=== PATIENT | female | born 1960 | race Caucasian/White ===

== ENCOUNTER 2018-04-28 07:20 | Inpatient (IN) | payer MEDICARE, MEDICAID ==
[~2018-04-28] VITALS: Ht 157.5 cm; Wt 104.2 kg
[2018-04-28] VITALS (9 sets, daily range): BP systolic 93–133; BP diastolic 46–66
[2018-04-28] MEDS: ipratropium/albuterol 3ml nebule NEB SCH ×3 (03:00→23:45)
[~2018-04-28 07:20] MED LIST: ACAM333T8 PO; AMIT-106 PO; ARIP10TA15 PO; BUSP10TA3 PO; CYCL-1 PO; ERGO50002 PO; HYDR50TA65 PO; LAMO100T2 PO; MELO-102 PO; PRAZ1CAP5 PO; SIMV20TA5 PO; SYN0.088T PO; TRAZ-219 PO
[2018-04-28] MEDS ORDERED: methylPREDNISolone sod succ 125mg/2ml vial IV ONE (07:35)
[2018-04-28] MEDS ORDERED: magnesium 2GM in 50ml NS 50 ML IV ONE (07:35)
[2018-04-28] MEDS ORDERED: ipratropium/albuterol 3ml nebule NEB ONE (07:35)
[2018-04-28] MEDS ORDERED: LORazepam 2 mg/ml vial IV ONE ×2 (07:35→09:25)
[2018-04-28 08:16] LABS: BASOPHILS # (AUTO) 0.1 X10'3 (0-0.2); BASOPHILS % (AUTO) 0.4 % (0-1); EOSINOPHILS # (AUTO) 0.2 X10'3 (0-0.9); EOSINOPHILS % (AUTO) 1.5 % (0-6); HEMOGLOBIN 12.8 g/dl (12.0-16.0); LYMPHOCYTES # (AUTO) 0.8 X10'3 (1.1-4.8); LYMPHOCYTES % (AUTO) 4.5 % (21-51); MEAN CORPUSCULAR HEMOGLOBIN 35.9 PG (27.0-31.0); MEAN CORPUSCULAR HGB CONC 34.7 % (33.0-36.5); MEAN CORPUSCULAR VOLUME 103.5 FL (78-98); MEAN PLATELET VOLUME 7.7 FL (7.4-10.4); MONOCYTES # (AUTO) 0.6 X10'3 (0-0.9); MONOCYTES % (AUTO) 3.5 % (2-12); NEUTROPHILS # (AUTO) 15.3 X10'3 (1.8-7.7); NEUTROPHILS % (AUTO) 90.1 % (42-75); PLATELET COUNT 171 X10'3 (140-440); RED BLOOD COUNT 3.57 X10'6 (4.20-5.60); RED CELL DISTRIBUTION WIDTH 13.2 % (11.5-14.5); WHITE BLOOD COUNT 16.9 X10'3 (4.5-11.0)
[2018-04-28] MEDS ORDERED: furosemide 10 MG/1 ML 10ml inj IV ONE (08:20)
[2018-04-28 08:23] LABS: CLARITY,URINE SLIGHTLY CLOUDY (Clear); COLOR,URINE YELLOW (Yellow); GLUCOSE, URINE NEGATIVE (Neg); KETONES,URINE TRACE mg/dl (Neg); PROTEIN,URINE NEGATIVE (Neg); UA COLLECTION TYPE STRAIGHT CATH
[2018-04-28 08:23] LABS: INR 1.2 INR; PARTIAL THROMBOPLASTIN TIME 30 SECONDS (22-32); PROTHROMBIN TIME 12.5 SECONDS (9.0-12.0)
[2018-04-28 08:24] LABS: LEUKOCYTE ESTERASE ,URINE NEGATIVE (Neg); NITRITES, URINE NEGATIVE (Neg); OCCULT BLOOD,URINE NEGATIVE (Neg)
[2018-04-28] MEDS ORDERED: vancomycin/NS 1 GM ADD-VANTAGE 250 ML IV ONE (08:25)
[2018-04-28] MEDS ORDERED: levoFLOXACIN-Levaquin 750MG/D5 150 ML IV ONE (08:25)
[2018-04-28 08:26] LABS: ALANINE AMINOTRANSFERASE 100 U/L (12-78); ALBUMIN 2.8 G/DL (3.4-5.0); ALBUMIN/GLOBULIN RATIO 0.7 (1.1-1.5); ALKALINE PHOSPHATASE 252 IU/L (46-116); ANION GAP 11 (8-16); ASPARTATE AMINO TRANSFERASE 297 U/L (10-37); BLOOD UREA NITROGEN 13 MG/DL (7-18); BUN/CREATININE RATIO 11.6 (6.6-38.0); CHLORIDE 102 MMOL/L (99-107); CREATININE 1.12 MG/DL (0.40-0.90); SODIUM 138 MMOL/L (135-145); TOTAL CARBON DIOXIDE 24.7 MMOL/L (24-32); eGFR 50 ML/MIN
[2018-04-28 08:27] LABS: BACTERIA,URINE 1+ /HPF (Neg); COARSE GRANULAR CAST 0-3 /LPF (NEGATIVE); MUCUS STRANDS FEW /LPF (Neg); RBC,URINE NONE SEEN /HPF (0-2); SQUAMOUS EPITHELIAL CELL,UR MODERATE /LPF (FEW); WBC CASTS 0-3 /LPF (NEGATIVE); WBC CLUMPS,URINE FEW /HPF (NEGATIVE)
[2018-04-28 08:30] LABS: GLUCOSE 117 MG/DL (70-104)
[2018-04-28 08:36] LABS: TOTAL CELLS COUNTED 100
--- NOTE | 2018-04-28 08:38 | NUR ---
rt at bedside placing on bipap
[2018-04-28 08:41] LABS: PLATELET ESTIMATE NORMAL; POLYCHROMASIA 1+
[2018-04-28 08:42] LABS: TOXIC GRANULATION 1+
[2018-04-28] MEDS ORDERED: normal saline 1000ML IV soln IVB ONE (08:45)
[2018-04-28] MEDS ORDERED: 0.9 % SODIUM CHLORIDE 10 ML VIAL ONE (09:00)
[2018-04-28] MEDS ORDERED: rocuronium 10mg/ml inj IV ONE (09:00)
[2018-04-28] MEDS ORDERED: etomidate 2mg/ml inj. ONE (09:00)
--- NOTE | 2018-04-28 09:08 | NUR ---
RT AT BEDSIDE DRAWING ABG, DR. BURNETT WAITING FOR RESULTS TO DECIDE NEXT TREAMENT NEEDED.
[2018-04-28 09:20] LABS: ABG BASE EXCESS -4.4 mmol/L (-2.0-3.0); ABG HCO3 21.2 mmol/L (22.0-26.0); ABG OXYGEN SATURATION 97.6 % (95-98); ABG PCO2 (T) 41.3 mmHg (32.0-45.0); ABG PH (T) 7.329 (7.350-7.450); ABG PO2 (T) 103.6 mmHg (83-108); ALLEN'S TEST Positive; FCOHb 1.1 % (0.5-1.5); FMetHb 0.3 % (0.3-1.12); FO2Hb 96.2 % (94-100); MINUTE VOLUME 30 L/min; RESPIRATORY RATE (OBSERVED) 32 b/min; TOTAL HEMOGLOBIN 13.8 G/dl (12.0-16.0)
--- NOTE | 2018-04-28 09:21 | NUR ---
DR MARTINEZFS AT BEDSIDE PREPARING TO INTUBATE, RT AT BEDSIDE. 0924 JASIEL 100, ETOMIDATE 20
--- NOTE | 2018-04-28 09:25 | NUR ---
0925 ETOMIDATE 20 ADMIN 0926 JASIEL [address] BURNETT INTUBATED WITH SIZE 8 TUBE, POSITIVE COLOR CHANGE, CO2 MONITOR, 20 AT LIP. BREATH SOUNDS BILATERALLY. HR 113, SPO2 03% ETCO2 27 0928 SET UP FOR QUAD LUMEN CENTRAL LINE WHILE SETTING UP VENT SETTINGS. BP 94/61 0932 BP 138/71 114 95% 100% 0938 152/81 120 91 100% DR BURNETT PLACING CENTRAL LINE. 0940 ULTRASOUND BROUGHT TO ROOM 0950 BP 195/98 122 91 100% DR BURNETT USING ULTRASOUND FOR CENTRAL LINE PLACEMENT. 0958 BP 193/95 124 92% 100% 1000 STARTING PREPING FEMORAL AREA FOR CENTRAL LINE PLACEMENT. Addendum: 04/28/18 at 1000 by VERONICA NOTE BY AUBREY
[2018-04-28] MEDS ORDERED: fentaNYL/PF 50MCG/1 ML 2ML syringe IV ONE (10:05)
--- NOTE | 2018-04-28 10:05 | NUR ---
1005 DR BURNETT PLACED FEMORAL LINE. BP 193/95 127 91 100% FIO2 1015 CXR AT BEDSIDE
[2018-04-28] MEDS ORDERED: potassium Cl 40MEQ/250ML bag 250 ML IV PRN (11:05)
[2018-04-28] MEDS ORDERED: ondansetron/PF 4mg/2ml inj IV PRN (11:05)
[2018-04-28] MEDS ORDERED: potassium Cl 20 mEq SR tablet PO PRN ×2 (11:05)
[2018-04-28] MEDS ORDERED: midazolam 2 mg/2 ml injection IV ONE (11:05)
[2018-04-28] MEDS ORDERED: acetaminophen 325mg tablet PO PRN (11:05)
[2018-04-28] MEDS ORDERED: potassium Cl 40MEQ/NS 500ml 500 ML IV PRN ×2 (11:05)
[2018-04-28] MEDS ORDERED: ipratropium/albuterol 3ml nebule NEB PRN (11:05)
[2018-04-28] MEDS ORDERED: fentaNYL/PF 50MCG/1 ML 2ML syringe IV PRN (11:05)
[2018-04-28] MEDS ORDERED: potassium Cl 40MEQ/250ML bag 250 ML IV SCH (11:05)
--- NOTE | 2018-04-28 11:12 | NUR ---
GASTRIC TUBE PLACED. POSITIVE PLACEMENT VARIFIED
[2018-04-28] MEDS: normal saline 1000ml 1,000 ML IV SCH (11:13)
[2018-04-28] MEDS: propofol 1000mg/100ml bottle 100 ML IV PRN (11:34)
[2018-04-28] MEDS: potassium 10mEq/100ml NS w/LIDOcaine (10mg/bag) IV SCH ×4 (11:35→13:12)
--- NOTE | 2018-04-28 11:38 | NUR ---
RT paged for oxygen sats of 87%. aware. Fio2 at 100% on vent
--- NOTE | 2018-04-28 12:52 | NUR ---
Pts dad came brifley. He looked at the patient and said 'well, if she is asleap I'm just going to go'. It was explained to him that she is intubated. His questions were answered and he states that he will call to check on her.
[2018-04-28] MEDS: CefTRIAXone/D5W-Rocephin 1gm 50 ML IV SCH (13:12)
--- NOTE | 2018-04-28 13:40 | NUR ---
pt arrived from er report received assumed care. pt moved to bed and placed on vent
[2018-04-28 14:51] LABS: OXYGEN SATURATION (MIXED VEN) 58.3 % (60-80); PO2 MIXED VENOUS (TEMP COR) 34.8 mmHg (35-46)
[2018-04-28] MEDS: azithromycin/NS 500mg/250ml 250 ML IV SCH (15:04)
[2018-04-28] MEDS: FENTANYL-0.9 % NACL/PF 100 ML IV PRN ×2 (15:26→19:34)
[2018-04-28] MEDS: midazolam 100mg in NS 100ml 100 ML IV PRN ×2 (15:28→19:26)
--- NOTE | 2018-04-28 16:45 | NUR ---
TF consult: Pt in ICU and intubated. Already with an OG tube per RN. Recommend continuous TF of Vital high protein with goal rate of 60 mL/hr to provide total volume of 1440 mL/day, 1440 kcal, 126 g protein, and 1204 mL fluid with 200 mL water flush Q 4 hours to meet 100% of patient's estimated nutrient needs. Will continue to follow and monitor tolerance to TF. Recommendations: 1) Continuous TF of Vital high protein to begin at 20 mL/hr and advance by 20 mL q 8 hours to goal rate of 60 mL/hr 2) 200 mL water flush q 4 hours 3) Prealbumin q / 4) Daily wt 5) BSS following extubation with diet advancement to heart healthy as medically indicated Addendum: 04/28/18 at [address] Amended: Links added.
[2018-04-28] MEDS: docusate sod 100mg capsule PO SCH (20:00)
[2018-04-28] MEDS: heparin, porcine 5000 units/ml vial SQ SCH (20:42)
[2018-04-28] MEDS: famotidine/PF 10 mg/ml inj IV SCH (20:54)
[2018-04-28] MEDS: mineral oil/petrolatum ophthal oint EACHEYE SCH (20:54)
[2018-04-29] VITALS (24 sets, daily range): BP systolic 91–114; BP diastolic 44–62
[2018-04-29] MEDS: FENTANYL-0.9 % NACL/PF 100 ML IV PRN ×4 (01:13→20:49)
[2018-04-29] MEDS: normal saline 1000ml 1,000 ML IV SCH (02:16)
[2018-04-29] MEDS: midazolam 100mg in NS 100ml 100 ML IV PRN ×2 (02:17→07:19)
[2018-04-29 02:53] LABS: BASOPHILS % (AUTO) 0 % (0-1); EOSINOPHILS % (AUTO) 0 % (0-6); HEMATOCRIT 32.2 % (35.0-45.0); HEMOGLOBIN 10.9 g/dl (12.0-16.0); LYMPHOCYTES # (AUTO) 0.7 X10'3 (1.1-4.8); LYMPHOCYTES % (AUTO) 4.1 % (21-51); MEAN CORPUSCULAR HEMOGLOBIN 35.1 PG (27.0-31.0); MEAN CORPUSCULAR HGB CONC 33.7 % (33.0-36.5); MEAN CORPUSCULAR VOLUME 104.2 FL (78-98); MONOCYTES # (AUTO) 0.8 X10'3 (0-0.9); MONOCYTES % (AUTO) 4.7 % (2-12); NEUTROPHILS # (AUTO) 15.2 X10'3 (1.8-7.7); NEUTROPHILS % (AUTO) 91.2 % (42-75); PLATELET COUNT 190 X10'3 (140-440); RED BLOOD COUNT 3.09 X10'6 (4.20-5.60); RED CELL DISTRIBUTION WIDTH 13.4 % (11.5-14.5); WHITE BLOOD COUNT 16.7 X10'3 (4.5-11.0)
[2018-04-29 03:11] LABS: ALANINE AMINOTRANSFERASE 81 U/L (12-78); ALBUMIN 2.4 G/DL (3.4-5.0); ALBUMIN/GLOBULIN RATIO 0.6 (1.1-1.5); ALKALINE PHOSPHATASE 218 IU/L (46-116); ANION GAP 12 (8-16); ASPARTATE AMINO TRANSFERASE 173 U/L (10-37); BLOOD UREA NITROGEN 15 MG/DL (7-18); BUN/CREATININE RATIO 22.1 (6.6-38.0); CALCIUM 8.4 MG/DL (8.5-10.1); CHLORIDE 105 MMOL/L (99-107); CREATININE 0.68 MG/DL (0.40-0.90); GLUCOSE 142 MG/DL (70-104); MAGNESIUM 2.2 MG/DL (1.5-2.4); PHOSPHORUS 4.2 MG/DL (2.3-4.5); SODIUM 140 MMOL/L (135-145); TOTAL CARBON DIOXIDE 22.9 MMOL/L (24-32); TOTAL PROTEIN 6.4 G/DL (6.4-8.2); eGFR 89 ML/MIN
[2018-04-29 03:30] LABS: ABG BASE EXCESS -4.7 mmol/L (-2.0-3.0); ABG HCO3 22.2 mmol/L (22.0-26.0); ABG OXYGEN SATURATION 85.8 % (95-98); ABG PCO2 (T) 47.2 mmHg (32.0-45.0); ABG PH (T) 7.288 (7.350-7.450); ABG PO2 (T) 50.6 mmHg (83-108); FMetHb 0.1 % (0.3-1.12); FO2Hb 85.7 % (94-100); MINUTE VOLUME 10 L/min; PATIENT TEMPERATURE 36.5; PEEP 10 cm H2O; RESPIRATORY RATE 20 b/min; RESPIRATORY RATE (OBSERVED) 22 b/min; TIDAL VOLUME 400 mL; TOTAL HEMOGLOBIN 13.5 G/dl (12.0-16.0)
--- NOTE | 2018-04-29 06:45 | NUR ---
Patient in room ICU 2037. I have received report from JENAE Dacosta and had the opportunity to ask questions and assume patient care.
[2018-04-29] MEDS: ipratropium/albuterol 3ml nebule NEB SCH ×6 (07:00→23:07)
[2018-04-29] MEDS: azithromycin/NS 500mg/250ml 250 ML IV SCH (07:49)
[2018-04-29] MEDS: heparin, porcine 5000 units/ml vial SQ SCH ×2 (07:50→21:18)
[2018-04-29] MEDS: CefTRIAXone/D5W-Rocephin 1gm 50 ML IV SCH (07:50)
[2018-04-29] MEDS: famotidine/PF 10 mg/ml inj IV SCH ×2 (07:50→21:17)
[2018-04-29] MEDS: docusate sod 100mg capsule PO SCH ×2 (08:00→20:00)
[2018-04-29] MEDS ORDERED: vancomycin/NS 1 GM ADD-VANTAGE 250 ML X 1 DOSE IV ONE (08:55)
[2018-04-29] MEDS ORDERED: furosemide 40mg/4ml inj IV SCH (09:00)
[2018-04-29] MEDS: propofol 1000mg/100ml bottle 100 ML IV PRN (10:34)
[2018-04-29] MEDS: hydrOXYzine 25 MG tablet PO SCH ×3 (13:20→21:02)
[2018-04-29] MEDS: furosemide 40mg/4ml inj IV SCH ×2 (13:20→21:07)
[2018-04-29] MEDS: acamprosate DR 333mg Tablet PO SCH (16:00)
--- NOTE | 2018-04-29 18:31 | NUR ---
Problems reprioritized. Patient report given, questions answered & plan of care reviewed with JENAE Dacosta.
--- NOTE | 2018-04-29 19:00 | NUR ---
Patient in room ICU 2037. I have received report from Aura Sanderson RN and had the opportunity to ask questions and assume patient care.
[2018-04-29] MEDS: mineral oil/petrolatum ophthal oint EACHEYE SCH (20:00)
[2018-04-29] MEDS: prazosin 1mg capsule PO SCH (21:00)
[2018-04-29] MEDS: atorvastatin 10mg tablet PO SCH (21:03)
[2018-04-29] MEDS: busPIRone 5mg tablet PO SCH (21:03)
[2018-04-29] MEDS: lamoTRIgine 100mg tablet PO SCH (21:03)
[2018-04-29] MEDS ORDERED: CISatracurium besylate inj. 200 MG in dextrose 5%-water 180 ML IV PRN (21:30)
[2018-04-29] MEDS: traZODone 50mg tablet PO SCH (21:39)
[2018-04-29 21:56] LABS: ABG BASE EXCESS -1.6 mmol/L (-2.0-3.0); ABG HCO3 25.4 mmol/L (22.0-26.0); ABG OXYGEN SATURATION 91.9 % (95-98); ABG PCO2 (T) 54.7 mmHg (32.0-45.0); ABG PH (T) 7.287 (7.350-7.450); ABG PO2 (T) 66.1 mmHg (83-108); FCOHb 0.3 % (0.5-1.5); FMetHb 0.1 % (0.3-1.12); FO2Hb 91.5 % (94-100); MINUTE VOLUME 9 L/min; PATIENT TEMPERATURE 37.5; PEEP 14 cm H2O; RESPIRATORY RATE 18 b/min; RESPIRATORY RATE (OBSERVED) 18 b/min; TIDAL VOLUME 400 mL; TOTAL HEMOGLOBIN 11.3 G/dl (12.0-16.0)
[2018-04-30] VITALS (23 sets, daily range): BP systolic 80–118; BP diastolic 39–58
[2018-04-30] MEDS: mineral oil/petrolatum ophthal oint EACHEYE SCH ×4 (02:00→20:53)
[2018-04-30] MEDS: ipratropium/albuterol 3ml nebule NEB SCH ×6 (02:34→23:38)
[2018-04-30 02:45] LABS: ABG HCO3 26.5 mmol/L (22.0-26.0); ABG OXYGEN SATURATION 99.4 % (95-98); ABG PH (T) 7.319 (7.350-7.450); ABG PO2 (T) 284.3 mmHg (83-108); FCOHb 0.3 % (0.5-1.5); FMetHb 0.3 % (0.3-1.12); FO2Hb 98.8 % (94-100); MINUTE VOLUME 9 L/min; PATIENT TEMPERATURE 37.4; PEEP 16 cm H2O; RESPIRATORY RATE 20 b/min; RESPIRATORY RATE (OBSERVED) 20 b/min; TIDAL VOLUME 400 mL
[2018-04-30 03:09] LABS: BASOPHILS % (AUTO) 0.1 % (0-1); EOSINOPHILS # (AUTO) 0.3 X10'3 (0-0.9); EOSINOPHILS % (AUTO) 1.9 % (0-6); HEMATOCRIT 30.2 % (35.0-45.0); LYMPHOCYTES # (AUTO) 1.5 X10'3 (1.1-4.8); LYMPHOCYTES % (AUTO) 10.5 % (21-51); MEAN CORPUSCULAR HGB CONC 33.3 % (33.0-36.5); MEAN CORPUSCULAR VOLUME 105.2 FL (78-98); MEAN PLATELET VOLUME 7.3 FL (7.4-10.4); MONOCYTES % (AUTO) 6.9 % (2-12); NEUTROPHILS # (AUTO) 11.8 X10'3 (1.8-7.7); NEUTROPHILS % (AUTO) 80.6 % (42-75); PLATELET COUNT 198 X10'3 (140-440); RED BLOOD COUNT 2.87 X10'6 (4.20-5.60); RED CELL DISTRIBUTION WIDTH 13.9 % (11.5-14.5); WHITE BLOOD COUNT 14.7 X10'3 (4.5-11.0)
[2018-04-30 03:25] LABS: ALANINE AMINOTRANSFERASE 62 U/L (12-78); ALBUMIN 2.3 G/DL (3.4-5.0); ALBUMIN/GLOBULIN RATIO 0.6 (1.1-1.5); ALKALINE PHOSPHATASE 204 IU/L (46-116); ANION GAP 10 (8-16); ASPARTATE AMINO TRANSFERASE 101 U/L (10-37); BILIRUBIN,TOTAL 0.8 MG/DL (0.1-1.0); BLOOD UREA NITROGEN 23 MG/DL (7-18); BUN/CREATININE RATIO 27.7 (6.6-38.0); CHLORIDE 106 MMOL/L (99-107); CREATININE 0.83 MG/DL (0.40-0.90); GLUCOSE 139 MG/DL (70-104); PHOSPHORUS 2.9 MG/DL (2.3-4.5); POTASSIUM 3.5 MMOL/L (3.5-5.1); SODIUM 142 MMOL/L (135-145); TOTAL CARBON DIOXIDE 26.3 MMOL/L (24-32); TOTAL PROTEIN 6.4 G/DL (6.4-8.2); eGFR 70 ML/MIN
[2018-04-30] MEDS: propofol 1000mg/100ml bottle 100 ML IV PRN (04:34)
[2018-04-30] MEDS: FENTANYL-0.9 % NACL/PF 100 ML IV PRN ×4 (05:07→22:41)
[2018-04-30] MEDS ORDERED: potassium Cl 40MEQ/250ML bag 250 ML IV ONE (07:20)
[2018-04-30] MEDS: docusate sod 100mg capsule PO SCH ×2 (08:00→20:00)
[2018-04-30] MEDS: acamprosate DR 333mg Tablet PO SCH ×3 (08:00→16:00)
[2018-04-30] MEDS: lamoTRIgine 100mg tablet PO SCH ×2 (08:11→20:27)
[2018-04-30] MEDS: amitriptyline 25mg tablet PO SCH (08:12)
[2018-04-30] MEDS: aripiprazole 5mg tablet PO SCH (08:12)
[2018-04-30] MEDS: cyclobenzaprine 10mg tablet PO SCH (08:13)
[2018-04-30] MEDS: busPIRone 5mg tablet PO SCH ×2 (08:13→20:27)
[2018-04-30] MEDS: furosemide 40mg/4ml inj IV SCH ×3 (08:13→20:28)
[2018-04-30] MEDS: levoTHYROXINE 88mcg tablet PO SCH (08:13)
[2018-04-30] MEDS: famotidine/PF 10 mg/ml inj IV SCH ×2 (08:13→20:26)
[2018-04-30] MEDS: heparin, porcine 5000 units/ml vial SQ SCH ×2 (08:14→20:30)
[2018-04-30] MEDS: CefTRIAXone/D5W-Rocephin 1gm 50 ML IV SCH (09:48)
[2018-04-30] MEDS: hydrOXYzine 25 MG tablet PO SCH ×4 (09:56→20:53)
[2018-04-30] MEDS: azithromycin/NS 500mg/250ml 250 ML IV SCH (11:46)
[2018-04-30] MEDS ORDERED: VANCOMYCIN LEVEL IV NR (14:30)
[2018-04-30] MEDS: folic acid inj. 2 MG, thiamine inj. 100 MG, MVI, adult No.4 with vit. K 10 ML in dextro... IV SCH ×4 (15:21)
--- NOTE | 2018-04-30 18:25 | NUR ---
Patient in room ICU 2037. I have received report from Paula EMANUEL and had the opportunity to ask questions and assume patient care. Patient laying in bed, intubated and sedated. Patient on 40% FIO2, saturating at 93% and breathing at 18 breaths/min. BP at 96/47 per automatic cuff, diprivan off at this time for low BP. Will continue to monitor patient.
[2018-04-30] MEDS: midazolam 100mg in NS 100ml 100 ML IV PRN (19:23)
[2018-04-30] MEDS: atorvastatin 10mg tablet PO SCH (20:26)
[2018-04-30] MEDS: prazosin 1mg capsule PO SCH (20:27)
[2018-04-30] MEDS: traZODone 50mg tablet PO SCH (20:27)
[2018-05-01] VITALS (24 sets, daily range): BP systolic 84–117; BP diastolic 42–57
[2018-05-01] MEDS: mineral oil/petrolatum ophthal oint EACHEYE SCH ×4 (02:29→19:56)
[2018-05-01] MEDS: ipratropium/albuterol 3ml nebule NEB SCH ×6 (02:52→23:11)
[2018-05-01 02:55] LABS: BASOPHILS % (AUTO) 0.2 % (0-1); EOSINOPHILS # (AUTO) 0.4 X10'3 (0-0.9); EOSINOPHILS % (AUTO) 4.3 % (0-6); HEMATOCRIT 27.8 % (35.0-45.0); HEMOGLOBIN 9.3 g/dl (12.0-16.0); LYMPHOCYTES # (AUTO) 1.4 X10'3 (1.1-4.8); LYMPHOCYTES % (AUTO) 13.5 % (21-51); MEAN CORPUSCULAR HEMOGLOBIN 34.8 PG (27.0-31.0); MEAN CORPUSCULAR HGB CONC 33.3 % (33.0-36.5); MEAN CORPUSCULAR VOLUME 104.8 FL (78-98); MEAN PLATELET VOLUME 7.5 FL (7.4-10.4); MONOCYTES # (AUTO) 0.8 X10'3 (0-0.9); MONOCYTES % (AUTO) 7.8 % (2-12); NEUTROPHILS # (AUTO) 7.6 X10'3 (1.8-7.7); NEUTROPHILS % (AUTO) 74.2 % (42-75); PLATELET COUNT 170 X10'3 (140-440); RED BLOOD COUNT 2.65 X10'6 (4.20-5.60); RED CELL DISTRIBUTION WIDTH 13.9 % (11.5-14.5); WHITE BLOOD COUNT 10.3 X10'3 (4.5-11.0)
[2018-05-01 03:06] LABS: ALANINE AMINOTRANSFERASE 54 U/L (12-78); ALBUMIN 2.2 G/DL (3.4-5.0); ALBUMIN/GLOBULIN RATIO 0.6 (1.1-1.5); ALKALINE PHOSPHATASE 187 IU/L (46-116); ANION GAP 7 (8-16); ASPARTATE AMINO TRANSFERASE 86 U/L (10-37); BILIRUBIN,TOTAL 0.8 MG/DL (0.1-1.0); BLOOD UREA NITROGEN 24 MG/DL (7-18); BUN/CREATININE RATIO 31.2 (6.6-38.0); CALCIUM 8.1 MG/DL (8.5-10.1); CHLORIDE 107 MMOL/L (99-107); CREATININE 0.77 MG/DL (0.40-0.90); GLUCOSE 130 MG/DL (70-104); MAGNESIUM 1.9 MG/DL (1.5-2.4); PHOSPHORUS 2.4 MG/DL (2.3-4.5); POTASSIUM 3.5 MMOL/L (3.5-5.1); SODIUM 143 MMOL/L (135-145); TOTAL CARBON DIOXIDE 28.6 MMOL/L (24-32); TOTAL PROTEIN 6.1 G/DL (6.4-8.2); eGFR 77 ML/MIN
[2018-05-01 03:06] LABS: ABG BASE EXCESS 0.5 mmol/L (-2.0-3.0); ABG HCO3 27.4 mmol/L (22.0-26.0); ABG OXYGEN SATURATION 96.9 % (95-98); ABG PCO2 (T) 55.1 mmHg (32.0-45.0); ABG PH (T) 7.313 (7.350-7.450); ABG PO2 (T) 91.6 mmHg (83-108); FCOHb 0.3 % (0.5-1.5); FMetHb 0.2 % (0.3-1.12); FO2Hb 96.4 % (94-100); PATIENT TEMPERATURE 36.7; PEEP 14 cm H2O; RESPIRATORY RATE 18 b/min; RESPIRATORY RATE (OBSERVED) 18 b/min; TIDAL VOLUME 400 mL; TOTAL HEMOGLOBIN 10.3 G/dl (12.0-16.0)
--- NOTE | 2018-05-01 06:19 | NUR ---
Problems reprioritized. Patient report given, questions answered & plan of care reviewed with Paula EMANUEL.
[2018-05-01] MEDS: acamprosate DR 333mg Tablet PO SCH ×2 (06:21)
[2018-05-01] MEDS: busPIRone 5mg tablet PO SCH ×2 (07:25→19:57)
[2018-05-01] MEDS: aripiprazole 5mg tablet PO SCH (07:25)
[2018-05-01] MEDS: docusate sodium 100mg/10ml UD cup PO SCH ×2 (07:25→19:56)
[2018-05-01] MEDS: amitriptyline 25mg tablet PO SCH (07:25)
[2018-05-01] MEDS: levoTHYROXINE 88mcg tablet PO SCH (07:25)
[2018-05-01] MEDS: lamoTRIgine 100mg tablet PO SCH ×2 (07:26→19:57)
[2018-05-01] MEDS: cyclobenzaprine 10mg tablet PO SCH (07:26)
[2018-05-01] MEDS: furosemide 40mg/4ml inj IV SCH ×2 (07:26→19:56)
[2018-05-01] MEDS: CefTRIAXone/D5W-Rocephin 1gm 50 ML IV SCH (07:27)
[2018-05-01] MEDS: hydrOXYzine 25 MG tablet PO SCH ×4 (07:27→20:00)
[2018-05-01] MEDS: famotidine/PF 10 mg/ml inj IV SCH ×2 (07:27→19:56)
[2018-05-01] MEDS: heparin, porcine 5000 units/ml vial SQ SCH ×2 (07:27→19:58)
[2018-05-01] MEDS: azithromycin/NS 500mg/250ml 250 ML IV SCH (08:22)
[2018-05-01] MEDS: folic acid inj. 2 MG, thiamine inj. 100 MG, MVI, adult No.4 with vit. K 10 ML in dextro... IV SCH ×4 (09:48)
--- NOTE | 2018-05-01 13:28 | NUR ---
reassessment: Pt TF held last night for residuals >200; restarted at 20ml/hr today. Man 10 w/ skin intact. Receiving banana bag for etoh hx. LBM 04/28 on relistor. Will monitor for TF tolerance and additional bowel care needs. Recommendations: 1) Continuous TF of Vital high protein to begin at 20 mL/hr and advance by 20 mL q 8 hours to goal rate of 60 mL/hr 2) 200 mL water flush q 4 hours 3) Prealbumin q / 4) Daily wt 5) Routine bowel care 6) BSS following extubation with diet advancement to heart healthy as medically indicated Addendum: 05/01/18 at [address] Amended: Links added.
[2018-05-01] MEDS: methylPREDNISolone sod succ 125mg/2ml vial IV SCH ×2 (14:46→19:56)
[2018-05-01] MEDS: methylnaltrexone br 12mg/0.6ml inj***SubQ only SQ SCH (16:00)
[2018-05-01] MEDS: midazolam 100mg in NS 100ml 100 ML IV PRN (18:06)
--- NOTE | 2018-05-01 18:30 | NUR ---
Patient in room ICU 2037. I have received report from Cathy EMANUEL and had the opportunity to ask questions and assume patient care. Patient laying in bed, intubated and sedated on 5ml versed/hr and 5ml fentanyl/hr. BP at 113/57 via arterial line, Patient saturating at 90% on 40% FIO2 on AC/CV mode, breathing at 22 breaths/min. Will continue to monitor patient.
[2018-05-01] MEDS: lactobacillus rhamnosus 10,000 MMU CELLS/CAPSULE PO SCH (19:57)
[2018-05-01] MEDS: traZODone 50mg tablet PO SCH (20:01)
[2018-05-01] MEDS: atorvastatin 10mg tablet PO SCH (20:52)
[2018-05-01] MEDS: prazosin 1mg capsule PO SCH (20:53)
[2018-05-02] VITALS (24 sets, daily range): BP systolic 10–124; BP diastolic 39–60
--- NOTE | 2018-05-02 | NUR ---
No changes in patient condition. Patient remains intubated and sedated, vitals WNL. Will continue to monitor patient.
[2018-05-02] MEDS: mineral oil/petrolatum ophthal oint EACHEYE SCH ×4 (02:00→19:42)
[2018-05-02] MEDS ORDERED: dextrose ORAL solution 15 GM/59 ML bottle PO PRN ×2 (02:20)
[2018-05-02] MEDS ORDERED: glucagon, human recombinant 1mg kit SUBCUT PRN (02:20)
[2018-05-02] MEDS ORDERED: dextrose 50%-water 50ml dispensing syringe IV PRN ×2 (02:20)
[2018-05-02] MEDS ORDERED: insulin Lispro (HumaLOG) vial - multi-dose SQ SCH (02:20)
[2018-05-02 03:26] LABS: BASOPHILS % (AUTO) 0.1 % (0-1); EOSINOPHILS % (AUTO) 0.3 % (0-6); HEMATOCRIT 28.5 % (35.0-45.0); HEMOGLOBIN 9.6 g/dl (12.0-16.0); LYMPHOCYTES # (AUTO) 0.8 X10'3 (1.1-4.8); LYMPHOCYTES % (AUTO) 9.5 % (21-51); MEAN CORPUSCULAR HEMOGLOBIN 35.1 PG (27.0-31.0); MEAN CORPUSCULAR HGB CONC 33.7 % (33.0-36.5); MEAN CORPUSCULAR VOLUME 104.3 FL (78-98); MEAN PLATELET VOLUME 7.9 FL (7.4-10.4); MONOCYTES # (AUTO) 0.2 X10'3 (0-0.9); MONOCYTES % (AUTO) 2.8 % (2-12); NEUTROPHILS % (AUTO) 87.3 % (42-75); PLATELET COUNT 174 X10'3 (140-440); RED BLOOD COUNT 2.73 X10'6 (4.20-5.60); RED CELL DISTRIBUTION WIDTH 13.3 % (11.5-14.5)
[2018-05-02] MEDS: methylPREDNISolone sod succ 125mg/2ml vial IV SCH ×4 (03:28→19:42)
[2018-05-02] MEDS: ipratropium/albuterol 3ml nebule NEB SCH ×6 (03:33→23:08)
[2018-05-02] MEDS: insulin regular, human vial - multi-dose SQ SCH ×4 (03:33→20:04)
[2018-05-02 03:50] LABS: ABG HCO3 30.6 mmol/L (22.0-26.0); ABG OXYGEN SATURATION 97.8 % (95-98); ABG PCO2 (T) 51.1 mmHg (32.0-45.0); ABG PH (T) 7.397 (7.350-7.450); ABG PO2 (T) 110.5 mmHg (83-108); FCOHb 0.3 % (0.5-1.5); FO2Hb 97.5 % (94-100); MINUTE VOLUME 9 L/min; PATIENT TEMPERATURE 37.6; PEEP 14 cm H2O; RESPIRATORY RATE 22 b/min; RESPIRATORY RATE (OBSERVED) 22 b/min; TIDAL VOLUME 400 mL; TOTAL HEMOGLOBIN 10.6 G/dl (12.0-16.0)
[2018-05-02 03:52] LABS: ALANINE AMINOTRANSFERASE 46 U/L (12-78); ALBUMIN 2.2 G/DL (3.4-5.0); ALBUMIN/GLOBULIN RATIO 0.5 (1.1-1.5); ALKALINE PHOSPHATASE 195 IU/L (46-116); ANION GAP 8 (8-16); ASPARTATE AMINO TRANSFERASE 71 U/L (10-37); BILIRUBIN,TOTAL 0.7 MG/DL (0.1-1.0); BLOOD UREA NITROGEN 22 MG/DL (7-18); BUN/CREATININE RATIO 27.2 (6.6-38.0); CALCIUM 8.2 MG/DL (8.5-10.1); CHLORIDE 106 MMOL/L (99-107); CREATININE 0.81 MG/DL (0.40-0.90); GLUCOSE 185 MG/DL (70-104); MAGNESIUM 1.9 MG/DL (1.5-2.4); PHOSPHORUS 2.3 MG/DL (2.3-4.5); POTASSIUM 3.4 MMOL/L (3.5-5.1); SODIUM 143 MMOL/L (135-145); TOTAL CARBON DIOXIDE 29.5 MMOL/L (24-32); TOTAL PROTEIN 6.4 G/DL (6.4-8.2); eGFR 72 ML/MIN
[2018-05-02] MEDS ORDERED: potassium Cl oral solution 20 MEQ/15 ML PO PRN (05:40)
--- NOTE | 2018-05-02 06:12 | NUR ---
Problems reprioritized. Patient report given, questions answered & plan of care reviewed with Paula EMANUEL.
[2018-05-02] MEDS: acamprosate DR 333mg Tablet PO SCH ×3 (06:15→06:16)
[2018-05-02] MEDS: busPIRone 5mg tablet PO SCH ×2 (07:06→19:44)
[2018-05-02] MEDS: lactobacillus rhamnosus 10,000 MMU CELLS/CAPSULE PO SCH ×2 (07:06→19:44)
[2018-05-02] MEDS: aripiprazole 5mg tablet PO SCH (07:06)
[2018-05-02] MEDS: hydrOXYzine 25 MG tablet PO SCH ×4 (07:07→20:01)
[2018-05-02] MEDS: lamoTRIgine 100mg tablet PO SCH ×2 (07:07→19:42)
[2018-05-02] MEDS: cyclobenzaprine 10mg tablet PO SCH (07:07)
[2018-05-02] MEDS: amitriptyline 25mg tablet PO SCH (07:07)
[2018-05-02] MEDS: levoTHYROXINE 88mcg tablet PO SCH (07:07)
[2018-05-02] MEDS: heparin, porcine 5000 units/ml vial SQ SCH ×2 (07:08→19:43)
[2018-05-02] MEDS: famotidine/PF 10 mg/ml inj IV SCH ×2 (07:08→19:42)
[2018-05-02] MEDS: docusate sodium 100mg/10ml UD cup PO SCH ×2 (07:09→19:42)
[2018-05-02] MEDS: furosemide 40mg/4ml inj IV SCH (07:09)
[2018-05-02] MEDS: CefTRIAXone/D5W-Rocephin 1gm 50 ML IV SCH (07:38)
[2018-05-02] MEDS: FENTANYL-0.9 % NACL/PF 100 ML IV PRN (08:40)
[2018-05-02] MEDS: azithromycin/NS 500mg/250ml 250 ML IV SCH (08:44)
[2018-05-02] MEDS: folic acid inj. 2 MG, thiamine inj. 100 MG, MVI, adult No.4 with vit. K 10 ML in dextro... IV SCH ×4 (09:41)
[2018-05-02] MEDS: nicotine 21mg patch - 24 hr TD SCH (10:36)
[2018-05-02] MEDS: midazolam 100mg in NS 100ml 100 ML IV PRN (12:37)
[2018-05-02] MEDS: furosemide 10 MG/1 ML 10ml inj IV SCH (16:15)
--- NOTE | 2018-05-02 18:20 | NUR ---
Patient in room ICU 2037. I have received report from Paula EMANUEL and had the opportunity to ask questions and assume patient care. Patient laying in bed, intubated and sedated on 5ml/hr of versed and 5ml/hr of fentanyl. Patient saturating at 96% on 40% FIO2, 12 PEEP, on AC/CV mode. HR in mid 50s in sinus bradycardia, BP 111/49 via arterial line. Will continue to monitor patient.
[2018-05-02] MEDS: metolazone 2.5mg tablet PO SCH (19:43)
[2018-05-02] MEDS: traZODone 50mg tablet PO SCH (20:00)
[2018-05-02] MEDS: atorvastatin 10mg tablet PO SCH (20:00)
[2018-05-02] MEDS: insulin glargine (Lantus) pen - multi-dose SQ SCH (20:03)
[2018-05-02] MEDS: prazosin 1mg capsule PO SCH ×2 (20:59→21:27)
[2018-05-03] VITALS (24 sets, daily range): BP systolic 99–148; BP diastolic 40–81
[2018-05-03] MEDS: furosemide 10 MG/1 ML 10ml inj IV SCH ×3 (00:25→16:18)
[2018-05-03] MEDS: methylPREDNISolone sod succ 125mg/2ml vial IV SCH ×4 (01:49→20:37)
[2018-05-03] MEDS: insulin regular, human vial - multi-dose SQ SCH ×4 (01:59→20:45)
[2018-05-03] MEDS: mineral oil/petrolatum ophthal oint EACHEYE SCH ×4 (02:03→20:35)
[2018-05-03 02:44] LABS: BASOPHILS % (AUTO) 0.2 % (0-1); EOSINOPHILS % (AUTO) 0 % (0-6); HEMATOCRIT 30.2 % (35.0-45.0); HEMOGLOBIN 10.3 g/dl (12.0-16.0); LYMPHOCYTES # (AUTO) 1.1 X10'3 (1.1-4.8); LYMPHOCYTES % (AUTO) 8.9 % (21-51); MEAN CORPUSCULAR HEMOGLOBIN 35.5 PG (27.0-31.0); MEAN CORPUSCULAR VOLUME 104.5 FL (78-98); MEAN PLATELET VOLUME 7.8 FL (7.4-10.4); MONOCYTES % (AUTO) 8.1 % (2-12); NEUTROPHILS # (AUTO) 10.1 X10'3 (1.8-7.7); NEUTROPHILS % (AUTO) 82.8 % (42-75); PLATELET COUNT 206 X10'3 (140-440); RED BLOOD COUNT 2.89 X10'6 (4.20-5.60); RED CELL DISTRIBUTION WIDTH 13.2 % (11.5-14.5); WHITE BLOOD COUNT 12.2 X10'3 (4.5-11.0)
[2018-05-03] MEDS: ipratropium/albuterol 3ml nebule NEB SCH ×6 (02:51→23:01)
[2018-05-03 03:04] LABS: ALANINE AMINOTRANSFERASE 39 U/L (12-78); ALBUMIN 2.3 G/DL (3.4-5.0); ALBUMIN/GLOBULIN RATIO 0.5 (1.1-1.5); ALKALINE PHOSPHATASE 196 IU/L (46-116); ANION GAP 9 (8-16); ASPARTATE AMINO TRANSFERASE 47 U/L (10-37); BILIRUBIN,TOTAL 0.7 MG/DL (0.1-1.0); BLOOD UREA NITROGEN 31 MG/DL (7-18); BUN/CREATININE RATIO 37.3 (6.6-38.0); CALCIUM 8.4 MG/DL (8.5-10.1); CHLORIDE 102 MMOL/L (99-107); CREATININE 0.83 MG/DL (0.40-0.90); GLUCOSE 180 MG/DL (70-104); PHOSPHORUS 2.8 MG/DL (2.3-4.5); SODIUM 144 MMOL/L (135-145); TOTAL PROTEIN 6.7 G/DL (6.4-8.2); eGFR 70 ML/MIN
[2018-05-03 03:06] LABS: ABG BASE EXCESS 11.1 mmol/L (-2.0-3.0); ABG OXYGEN SATURATION 94.3 % (95-98); ABG PCO2 (T) 40.8 mmHg (32.0-45.0); ABG PH (T) 7.546 (7.350-7.450); FCOHb 0.3 % (0.5-1.5); MINUTE VOLUME 11 L/min; PATIENT TEMPERATURE 35.5; PEEP 10 cm H2O; RESPIRATORY RATE 22 b/min; RESPIRATORY RATE (OBSERVED) 22 b/min; TIDAL VOLUME 400 mL; TOTAL HEMOGLOBIN 11.2 G/dl (12.0-16.0)
[2018-05-03 03:07] LABS: POTASSIUM 2.5 MMOL/L (3.5-5.1)
[2018-05-03] MEDS: midazolam 100mg in NS 100ml 100 ML IV PRN (03:21)
[2018-05-03] MEDS: potassium Cl oral solution 20 MEQ/15 ML PO PRN ×2 (03:21→08:03)
[2018-05-03] MEDS: FENTANYL-0.9 % NACL/PF 100 ML IV PRN ×3 (03:22→19:46)
--- NOTE | 2018-05-03 04:12 | NUR ---
No changes in condition noted at this time. Sedation now at 7ml/hr of versed due to patient's frequent coughing and bucking vent. Rate changed to 18 breaths/min and FIO2 now at 45%. K 2.5 with AM labs, one dose potassium syrup given. Will continue to monitor patient.
[2018-05-03] MEDS: docusate sodium 100mg/10ml UD cup PO SCH ×2 (07:32→20:35)
[2018-05-03] MEDS: busPIRone 5mg tablet PO SCH ×2 (07:32→20:36)
[2018-05-03] MEDS: hydrOXYzine 25 MG tablet PO SCH ×4 (07:32→20:36)
[2018-05-03] MEDS: lactobacillus rhamnosus 10,000 MMU CELLS/CAPSULE PO SCH ×2 (07:33→20:36)
[2018-05-03] MEDS: aripiprazole 5mg tablet PO SCH (07:33)
[2018-05-03] MEDS: cyclobenzaprine 10mg tablet PO SCH (07:33)
[2018-05-03] MEDS: levoTHYROXINE 88mcg tablet PO SCH (07:33)
[2018-05-03] MEDS: azithromycin/NS 500mg/250ml 250 ML IV SCH (07:33)
[2018-05-03] MEDS: amitriptyline 25mg tablet PO SCH (07:33)
[2018-05-03] MEDS: famotidine/PF 10 mg/ml inj IV SCH ×2 (07:33→20:37)
[2018-05-03] MEDS: methylnaltrexone br 12mg/0.6ml inj***SubQ only SQ SCH (07:34)
[2018-05-03] MEDS: nicotine 21mg patch - 24 hr TD SCH (07:35)
[2018-05-03] MEDS: heparin, porcine 5000 units/ml vial SQ SCH ×2 (07:35→20:37)
[2018-05-03] MEDS: lamoTRIgine 100mg tablet PO SCH ×2 (07:41→20:37)
[2018-05-03] MEDS: acamprosate DR 333mg Tablet PO SCH ×3 (07:51→14:52)
[2018-05-03] MEDS: metolazone 2.5mg tablet PO SCH (08:00)
--- NOTE | 2018-05-03 08:45 | NUR ---
Patient in room ICU 2037. I have received report from ellie and had the opportunity to ask questions and assume patient care.
--- NOTE | 2018-05-03 09:14 | NUR ---
Problems reprioritized. Patient report given, questions answered & plan of care reviewed with Brandi EMANUEL.
[2018-05-03] MEDS: CefTRIAXone/D5W-Rocephin 1gm 50 ML IV SCH (09:30)
[2018-05-03] MEDS: potassium Cl 40MEQ/250ML bag 250 ML IV PRN ×3 (10:24→18:37)
[2018-05-03] MEDS: folic acid inj. 2 MG, thiamine inj. 100 MG, MVI, adult No.4 with vit. K 10 ML in dextro... IV SCH ×4 (13:00)
--- NOTE | 2018-05-03 14:08 | NUR ---
peep turned down to 8 from 10 this am. sats 95 to 93% upon occ, pt will high presure vent and sats will go to 83%. little sx, 100% x 2" and pt will return to adequate sats
[2018-05-03] MEDS: acetaZOLAMIDE IV 500mg inj IV SCH ×2 (17:00→20:38)
[2018-05-03] MEDS: furosemide 40mg/4ml inj IV SCH (20:00)
[2018-05-03] MEDS: atorvastatin 10mg tablet PO SCH (20:36)
[2018-05-03] MEDS: traZODone 50mg tablet PO SCH (20:36)
[2018-05-03] MEDS: prazosin 1mg capsule PO SCH (20:36)
[2018-05-03] MEDS: insulin glargine (Lantus) pen - multi-dose SQ SCH (20:42)
[2018-05-04] VITALS (23 sets, daily range): BP systolic 95–120; BP diastolic 42–98
[2018-05-04] MEDS: midazolam 100mg in NS 100ml 100 ML IV PRN (02:00)
[2018-05-04] MEDS: mineral oil/petrolatum ophthal oint EACHEYE SCH ×4 (02:05→20:34)
[2018-05-04] MEDS: methylPREDNISolone sod succ 125mg/2ml vial IV SCH ×3 (02:05→16:43)
[2018-05-04 02:45] LABS: BASOPHILS % (AUTO) 0.1 % (0-1); EOSINOPHILS % (AUTO) 0 % (0-6); HEMATOCRIT 30.5 % (35.0-45.0); HEMOGLOBIN 10.3 g/dl (12.0-16.0); LYMPHOCYTES # (AUTO) 1.2 X10'3 (1.1-4.8); LYMPHOCYTES % (AUTO) 9.2 % (21-51); MEAN CORPUSCULAR HGB CONC 33.9 % (33.0-36.5); MEAN CORPUSCULAR VOLUME 103.4 FL (78-98); MEAN PLATELET VOLUME 7.8 FL (7.4-10.4); MONOCYTES # (AUTO) 1.5 X10'3 (0-0.9); MONOCYTES % (AUTO) 10.9 % (2-12); NEUTROPHILS # (AUTO) 10.8 X10'3 (1.8-7.7); NEUTROPHILS % (AUTO) 79.8 % (42-75); PLATELET COUNT 217 X10'3 (140-440); RED BLOOD COUNT 2.95 X10'6 (4.20-5.60); RED CELL DISTRIBUTION WIDTH 13.4 % (11.5-14.5); WHITE BLOOD COUNT 13.5 X10'3 (4.5-11.0)
[2018-05-04 03:07] LABS: ALANINE AMINOTRANSFERASE 38 U/L (12-78); ALBUMIN 2.3 G/DL (3.4-5.0); ALBUMIN/GLOBULIN RATIO 0.5 (1.1-1.5); ALKALINE PHOSPHATASE 197 IU/L (46-116); ANION GAP 5 (8-16); ASPARTATE AMINO TRANSFERASE 40 U/L (10-37); BILIRUBIN,TOTAL 0.6 MG/DL (0.1-1.0); BLOOD UREA NITROGEN 39 MG/DL (7-18); CALCIUM 9.2 MG/DL (8.5-10.1); CHLORIDE 103 MMOL/L (99-107); CREATININE 0.83 MG/DL (0.40-0.90); GLUCOSE 120 MG/DL (70-104); MAGNESIUM 2.2 MG/DL (1.5-2.4); PHOSPHORUS 3.2 MG/DL (2.3-4.5); POTASSIUM 4.2 MMOL/L (3.5-5.1); SODIUM 145 MMOL/L (135-145); TOTAL CARBON DIOXIDE 36.9 MMOL/L (24-32); TOTAL PROTEIN 6.7 G/DL (6.4-8.2); eGFR 70 ML/MIN
[2018-05-04] MEDS: ipratropium/albuterol 3ml nebule NEB SCH ×6 (03:07→22:41)
[2018-05-04 03:20] LABS: ABG BASE EXCESS 13.1 mmol/L (-2.0-3.0); ABG HCO3 38.2 mmol/L (22.0-26.0); ABG OXYGEN SATURATION 90.2 % (95-98); ABG PCO2 (T) 51.6 mmHg (32.0-45.0); ABG PH (T) 7.488 (7.350-7.450); FCOHb 0.3 % (0.5-1.5); FO2Hb 89.9 % (94-100); PATIENT TEMPERATURE 37.3; PEEP 8 cm H2O; RESPIRATORY RATE 18 b/min; RESPIRATORY RATE (OBSERVED) 19 b/min; TIDAL VOLUME 400 mL; TOTAL HEMOGLOBIN 11.3 G/dl (12.0-16.0)
--- NOTE | 2018-05-04 06:30 | NUR ---
Patient in room ICU 2037. I have received report from rissa and had the opportunity to ask questions and assume patient care.
[2018-05-04] MEDS: acamprosate DR 333mg Tablet PO SCH ×3 (08:00→16:00)
[2018-05-04 08:46] LABS: HEMOGLOBIN A1C 5.1 % (4.5-6.2)
[2018-05-04] MEDS: amitriptyline 25mg tablet PO SCH (09:03)
[2018-05-04] MEDS: hydrOXYzine 25 MG tablet PO SCH ×4 (09:04→20:14)
[2018-05-04] MEDS: aripiprazole 5mg tablet PO SCH (09:04)
[2018-05-04] MEDS: cyclobenzaprine 10mg tablet PO SCH (09:04)
[2018-05-04] MEDS: lamoTRIgine 100mg tablet PO SCH ×2 (09:04→20:14)
[2018-05-04] MEDS: lactobacillus rhamnosus 10,000 MMU CELLS/CAPSULE PO SCH ×2 (09:04→20:14)
[2018-05-04] MEDS: busPIRone 5mg tablet PO SCH ×2 (09:04→20:13)
[2018-05-04] MEDS: levoTHYROXINE 88mcg tablet PO SCH (09:04)
[2018-05-04] MEDS: docusate sodium 100mg/10ml UD cup PO SCH ×2 (09:13→20:15)
[2018-05-04] MEDS: nicotine 21mg patch - 24 hr TD SCH (09:16)
[2018-05-04] MEDS: famotidine/PF 10 mg/ml inj IV SCH ×2 (09:17→20:25)
[2018-05-04] MEDS: heparin, porcine 5000 units/ml vial SQ SCH ×2 (09:17→20:32)
[2018-05-04] MEDS: CefTRIAXone/D5W-Rocephin 1gm 50 ML IV SCH (09:17)
[2018-05-04] MEDS: furosemide 40mg/4ml inj IV SCH ×2 (09:19→20:29)
[2018-05-04] MEDS: acetaZOLAMIDE IV 500mg inj IV SCH ×2 (09:26→20:18)
[2018-05-04] MEDS: folic acid inj. 2 MG, thiamine inj. 100 MG, MVI, adult No.4 with vit. K 10 ML in dextro... IV SCH ×4 (09:44)
[2018-05-04] MEDS: metoclopramide 5 mg/ml inj IV SCH ×3 (10:30→20:27)
[2018-05-04] MEDS: azithromycin/NS 500mg/250ml 250 ML IV SCH (10:31)
[2018-05-04] MEDS: insulin regular, human vial - multi-dose SQ SCH ×3 (10:37→20:10)
--- NOTE | 2018-05-04 12:13 | NUR ---
reassessment: Pt not tolerating TF at 30ml/hr; LBM 04/28 6 days and started on reglan today per MD. Will monitor for tolerance and advancement to goal. Recommendations: 1) Continuous TF of Vital high protein to begin at 20 mL/hr and advance by 20 mL q 8 hours to goal rate of 60 mL/hr 2) 200 mL water flush q 4 hours 3) Prealbumin q / 4) Daily wt 5) Routine bowel care 6) BSS following extubation with diet advancement to heart healthy as medically indicated Addendum: 05/04/18 at [address] Amended: Links added.
[2018-05-04] MEDS: FENTANYL-0.9 % NACL/PF 100 ML IV PRN (14:41)
--- NOTE | 2018-05-04 19:00 | NUR ---
Patient in room ICU 2037. I have received report from Francisco Stock RN and had the opportunity to ask questions and assume patient care.
[2018-05-04] MEDS: insulin glargine (Lantus) pen - multi-dose SQ SCH (20:11)
[2018-05-04] MEDS: traZODone 50mg tablet PO SCH (20:13)
[2018-05-04] MEDS: atorvastatin 10mg tablet PO SCH (20:14)
[2018-05-04] MEDS: prazosin 1mg capsule PO SCH (21:00)
[2018-05-05] VITALS (24 sets, daily range): BP systolic 107–140; BP diastolic 46–57
[2018-05-05] MEDS: methylPREDNISolone sod succ 125mg/2ml vial IV SCH ×3 (00:41→16:00)
[2018-05-05] MEDS: insulin regular, human vial - multi-dose SQ SCH ×4 (02:35→20:23)
[2018-05-05] MEDS: metoclopramide 5 mg/ml inj IV SCH ×4 (02:35→20:42)
[2018-05-05] MEDS: mineral oil/petrolatum ophthal oint EACHEYE SCH ×4 (02:38→20:45)
[2018-05-05] MEDS: ipratropium/albuterol 3ml nebule NEB SCH ×6 (02:44→22:47)
[2018-05-05 03:15] LABS: BASOPHILS % (AUTO) 0.2 % (0-1); EOSINOPHILS # (AUTO) 0.2 X10'3 (0-0.9); EOSINOPHILS % (AUTO) 1.2 % (0-6); HEMATOCRIT 31.6 % (35.0-45.0); HEMOGLOBIN 10.5 g/dl (12.0-16.0); LYMPHOCYTES # (AUTO) 1.3 X10'3 (1.1-4.8); LYMPHOCYTES % (AUTO) 9.2 % (21-51); MEAN CORPUSCULAR HEMOGLOBIN 34.4 PG (27.0-31.0); MEAN CORPUSCULAR HGB CONC 33.3 % (33.0-36.5); MEAN CORPUSCULAR VOLUME 103.4 FL (78-98); MEAN PLATELET VOLUME 8.3 FL (7.4-10.4); MONOCYTES % (AUTO) 6.8 % (2-12); NEUTROPHILS # (AUTO) 11.7 X10'3 (1.8-7.7); NEUTROPHILS % (AUTO) 82.6 % (42-75); PLATELET COUNT 197 X10'3 (140-440); RED BLOOD COUNT 3.06 X10'6 (4.20-5.60); RED CELL DISTRIBUTION WIDTH 13.6 % (11.5-14.5); WHITE BLOOD COUNT 14.2 X10'3 (4.5-11.0)
[2018-05-05 03:32] LABS: ALANINE AMINOTRANSFERASE 43 U/L (12-78); ALBUMIN 2.4 G/DL (3.4-5.0); ALBUMIN/GLOBULIN RATIO 0.6 (1.1-1.5); ALKALINE PHOSPHATASE 195 IU/L (46-116); ANION GAP 9 (8-16); ASPARTATE AMINO TRANSFERASE 43 U/L (10-37); BILIRUBIN,TOTAL 0.7 MG/DL (0.1-1.0); BLOOD UREA NITROGEN 45 MG/DL (7-18); BUN/CREATININE RATIO 55.6 (6.6-38.0); CALCIUM 9.1 MG/DL (8.5-10.1); CHLORIDE 100 MMOL/L (99-107); CREATININE 0.81 MG/DL (0.40-0.90); GLUCOSE 192 MG/DL (70-104); MAGNESIUM 2.4 MG/DL (1.5-2.4); PHOSPHORUS 4.6 MG/DL (2.3-4.5); POTASSIUM 3.6 MMOL/L (3.5-5.1); SODIUM 140 MMOL/L (135-145); TOTAL CARBON DIOXIDE 31.4 MMOL/L (24-32); TOTAL PROTEIN 6.7 G/DL (6.4-8.2); eGFR 72 ML/MIN
[2018-05-05 04:05] LABS: ABG BASE EXCESS 6.9 mmol/L (-2.0-3.0); ABG HCO3 31.6 mmol/L (22.0-26.0); ABG OXYGEN SATURATION 94.3 % (95-98); ABG PCO2 (T) 44.5 mmHg (32.0-45.0); ABG PH (T) 7.467 (7.350-7.450); FCOHb 0.3 % (0.5-1.5); MINUTE VOLUME 7 L/min; PATIENT TEMPERATURE 36.6; PEEP 8 cm H2O; RESPIRATORY RATE 18 b/min; RESPIRATORY RATE (OBSERVED) 19 b/min; TIDAL VOLUME 400 mL; TOTAL HEMOGLOBIN 11.6 G/dl (12.0-16.0)
[2018-05-05] MEDS: midazolam 100mg in NS 100ml 100 ML IV PRN (04:06)
--- NOTE | 2018-05-05 06:30 | NUR ---
Patient in room ICU 2037. I have received report from laura and had the opportunity to ask questions and assume patient care.
[2018-05-05] MEDS: docusate sodium 100mg/10ml UD cup PO SCH ×2 (08:00→20:00)
[2018-05-05] MEDS: methylnaltrexone br 12mg/0.6ml inj***SubQ only SQ SCH (08:00)
[2018-05-05] MEDS: acamprosate DR 333mg Tablet PO SCH ×3 (08:00→16:00)
[2018-05-05] MEDS: azithromycin/NS 500mg/250ml 250 ML IV SCH (08:41)
[2018-05-05] MEDS: CefTRIAXone/D5W-Rocephin 1gm 50 ML IV SCH (08:41)
[2018-05-05] MEDS: lamoTRIgine 100mg tablet PO SCH ×2 (08:43→20:31)
[2018-05-05] MEDS: busPIRone 5mg tablet PO SCH ×2 (08:44→20:31)
[2018-05-05] MEDS: levoTHYROXINE 88mcg tablet PO SCH (08:44)
[2018-05-05] MEDS: aripiprazole 5mg tablet PO SCH (08:45)
[2018-05-05] MEDS: lactobacillus rhamnosus 10,000 MMU CELLS/CAPSULE PO SCH ×2 (08:46→20:31)
[2018-05-05] MEDS: cyclobenzaprine 10mg tablet PO SCH (08:46)
[2018-05-05] MEDS: amitriptyline 25mg tablet PO SCH (08:46)
[2018-05-05] MEDS: hydrOXYzine 25 MG tablet PO SCH ×4 (08:46→20:32)
[2018-05-05] MEDS: furosemide 40mg/4ml inj IV SCH ×2 (08:48→20:37)
[2018-05-05] MEDS: nicotine 21mg patch - 24 hr TD SCH (08:48)
[2018-05-05] MEDS: heparin, porcine 5000 units/ml vial SQ SCH ×2 (08:49→20:32)
[2018-05-05] MEDS: famotidine/PF 10 mg/ml inj IV SCH ×2 (08:49→20:45)
[2018-05-05] MEDS: acetaZOLAMIDE IV 500mg inj IV SCH (08:50)
[2018-05-05] MEDS: folic acid inj. 2 MG, thiamine inj. 100 MG, MVI, adult No.4 with vit. K 10 ML in dextro... IV SCH ×4 (09:51)
--- NOTE | 2018-05-05 11:00 | NUR ---
update to dr montes- peep down to 5. will slowly wean versed. pt tolerating well sats only to 90 when coughing. scant sx. father in briefly
--- NOTE | 2018-05-05 19:00 | NUR ---
Patient in room ICU 2037. I have received report from Brandi Anna RN and had the opportunity to ask questions and assume patient care.
[2018-05-05] MEDS: insulin glargine (Lantus) pen - multi-dose SQ SCH (20:24)
[2018-05-05] MEDS: traZODone 50mg tablet PO SCH (20:31)
[2018-05-05] MEDS: atorvastatin 10mg tablet PO SCH (20:31)
[2018-05-05] MEDS: prazosin 1mg capsule PO SCH (21:00)
[2018-05-06] VITALS (24 sets, daily range): BP systolic 94–148; BP diastolic 42–57
[2018-05-06] MEDS: methylPREDNISolone sod succ 125mg/2ml vial IV SCH ×3 (00:54→16:32)
[2018-05-06] MEDS: insulin regular, human vial - multi-dose SQ SCH ×4 (02:00→19:52)
[2018-05-06] MEDS: mineral oil/petrolatum ophthal oint EACHEYE SCH ×4 (02:00→20:11)
[2018-05-06] MEDS: metoclopramide 5 mg/ml inj IV SCH ×4 (02:00→20:05)
[2018-05-06 02:37] LABS: BASOPHILS % (AUTO) 0.3 % (0-1); EOSINOPHILS # (AUTO) 0.2 X10'3 (0-0.9); HEMATOCRIT 30.8 % (35.0-45.0); HEMOGLOBIN 10.4 g/dl (12.0-16.0); LYMPHOCYTES # (AUTO) 1.7 X10'3 (1.1-4.8); LYMPHOCYTES % (AUTO) 10.3 % (21-51); MEAN CORPUSCULAR HEMOGLOBIN 34.9 PG (27.0-31.0); MEAN CORPUSCULAR HGB CONC 33.6 % (33.0-36.5); MEAN CORPUSCULAR VOLUME 103.8 FL (78-98); MEAN PLATELET VOLUME 8.5 FL (7.4-10.4); MONOCYTES # (AUTO) 0.9 X10'3 (0-0.9); MONOCYTES % (AUTO) 5.6 % (2-12); NEUTROPHILS # (AUTO) 13.3 X10'3 (1.8-7.7); NEUTROPHILS % (AUTO) 82.8 % (42-75); PLATELET COUNT 177 X10'3 (140-440); RED BLOOD COUNT 2.97 X10'6 (4.20-5.60); RED CELL DISTRIBUTION WIDTH 13.3 % (11.5-14.5); WHITE BLOOD COUNT 16.1 X10'3 (4.5-11.0)
[2018-05-06] MEDS: ipratropium/albuterol 3ml nebule NEB SCH ×6 (02:43→22:53)
[2018-05-06 02:53] LABS: ALANINE AMINOTRANSFERASE 47 U/L (12-78); ALBUMIN 2.3 G/DL (3.4-5.0); ALBUMIN/GLOBULIN RATIO 0.5 (1.1-1.5); ALKALINE PHOSPHATASE 175 IU/L (46-116); ANION GAP 8 (8-16); ASPARTATE AMINO TRANSFERASE 42 U/L (10-37); BILIRUBIN,TOTAL 0.6 MG/DL (0.1-1.0); BLOOD UREA NITROGEN 45 MG/DL (7-18); BUN/CREATININE RATIO 59.2 (6.6-38.0); CHLORIDE 101 MMOL/L (99-107); CREATININE 0.76 MG/DL (0.40-0.90); GLUCOSE 167 MG/DL (70-104); MAGNESIUM 2.4 MG/DL (1.5-2.4); PHOSPHORUS 4.1 MG/DL (2.3-4.5); POTASSIUM 3.4 MMOL/L (3.5-5.1); SODIUM 139 MMOL/L (135-145); TOTAL CARBON DIOXIDE 30.2 MMOL/L (24-32); TOTAL PROTEIN 6.5 G/DL (6.4-8.2); eGFR 78 ML/MIN
[2018-05-06 03:46] LABS: ABG BASE EXCESS 7.3 mmol/L (-2.0-3.0); ABG HCO3 31.7 mmol/L (22.0-26.0); ABG OXYGEN SATURATION 89.1 % (95-98); ABG PCO2 (T) 43.5 mmHg (32.0-45.0); ABG PO2 (T) 54.1 mmHg (83-108); FMetHb 0.3 % (0.3-1.12); FO2Hb 88.8 % (94-100); MINUTE VOLUME 9 L/min; PATIENT TEMPERATURE 36.7; PEEP 5 cm H2O; RESPIRATORY RATE 18 b/min; RESPIRATORY RATE (OBSERVED) 25 b/min; TIDAL VOLUME 400 mL; TOTAL HEMOGLOBIN 11.7 G/dl (12.0-16.0)
--- NOTE | 2018-05-06 03:55 | NUR ---
Pt po2 was 54% on her blood gas, artemio silva was notified, he increased the PEEP from 5 back up to 8.
[2018-05-06] MEDS: potassium Cl 40MEQ/250ML bag 250 ML IV PRN (04:52)
[2018-05-06] MEDS: midazolam 100mg in NS 100ml 100 ML IV PRN (07:29)
[2018-05-06] MEDS: FENTANYL-0.9 % NACL/PF 100 ML IV PRN ×2 (07:29→16:51)
[2018-05-06] MEDS: busPIRone 5mg tablet PO SCH ×2 (07:47→19:55)
[2018-05-06] MEDS: aripiprazole 5mg tablet PO SCH (07:47)
[2018-05-06] MEDS: CefTRIAXone/D5W-Rocephin 1gm 50 ML IV SCH (07:47)
[2018-05-06] MEDS: furosemide 40mg/4ml inj IV SCH ×2 (07:48→20:00)
[2018-05-06] MEDS: lamoTRIgine 100mg tablet PO SCH ×2 (07:48→19:56)
[2018-05-06] MEDS: amitriptyline 25mg tablet PO SCH (07:48)
[2018-05-06] MEDS: heparin, porcine 5000 units/ml vial SQ SCH ×2 (07:48→20:11)
[2018-05-06] MEDS: lactobacillus rhamnosus 10,000 MMU CELLS/CAPSULE PO SCH ×2 (07:49→19:56)
[2018-05-06] MEDS: cyclobenzaprine 10mg tablet PO SCH (07:49)
[2018-05-06] MEDS: levoTHYROXINE 88mcg tablet PO SCH (07:49)
[2018-05-06] MEDS: hydrOXYzine 25 MG tablet PO SCH ×4 (07:49→19:56)
[2018-05-06] MEDS: nicotine 21mg patch - 24 hr TD SCH (07:50)
[2018-05-06] MEDS: folic acid inj. 2 MG, thiamine inj. 100 MG, MVI, adult No.4 with vit. K 10 ML in dextro... IV SCH ×4 (07:50)
[2018-05-06] MEDS: docusate sodium 100mg/10ml UD cup PO SCH ×2 (07:51→19:56)
[2018-05-06] MEDS: acamprosate DR 333mg Tablet PO SCH ×3 (08:00→15:10)
[2018-05-06] MEDS: famotidine/PF 10 mg/ml inj IV SCH ×2 (08:02→20:11)
[2018-05-06] MEDS: azithromycin/NS 500mg/250ml 250 ML IV SCH (08:24)
--- NOTE | 2018-05-06 19:00 | NUR ---
Patient in room ICU 2037. I have received report from Marcus Figueroa RN and had the opportunity to ask questions and assume patient care.
[2018-05-06] MEDS: insulin glargine (Lantus) pen - multi-dose SQ SCH (19:53)
[2018-05-06] MEDS: atorvastatin 10mg tablet PO SCH (19:55)
[2018-05-06] MEDS: traZODone 50mg tablet PO SCH (19:55)
[2018-05-06] MEDS: prazosin 1mg capsule PO SCH (21:00)
[2018-05-07] VITALS (24 sets, daily range): BP systolic 98–162; BP diastolic 40–90
[2018-05-07] MEDS: methylPREDNISolone sod succ 125mg/2ml vial IV SCH ×3 (01:17→16:34)
[2018-05-07] MEDS: insulin regular, human vial - multi-dose SQ SCH ×2 (01:37→21:17)
[2018-05-07] MEDS: metoclopramide 5 mg/ml inj IV SCH ×4 (02:36→21:09)
[2018-05-07] MEDS: mineral oil/petrolatum ophthal oint EACHEYE SCH ×4 (02:39→21:07)
[2018-05-07] MEDS: ipratropium/albuterol 3ml nebule NEB SCH ×6 (02:43→22:45)
[2018-05-07 03:16] LABS: ABG BASE EXCESS 3.9 mmol/L (-2.0-3.0); ABG HCO3 27.7 mmol/L (22.0-26.0); ABG PCO2 (T) 37.8 mmHg (32.0-45.0); ABG PH (T) 7.481 (7.350-7.450); ABG PO2 (T) 64.2 mmHg (83-108); FCOHb 0.3 % (0.5-1.5); FO2Hb 92.7 % (94-100); MINUTE VOLUME 7 L/min; PATIENT TEMPERATURE 36.3; PEEP 8 cm H2O; RESPIRATORY RATE 18 b/min; RESPIRATORY RATE (OBSERVED) 18 b/min; TIDAL VOLUME 400 mL; TOTAL HEMOGLOBIN 11.6 G/dl (12.0-16.0)
[2018-05-07 03:59] LABS: BASOPHILS % (AUTO) 0.3 % (0-1); EOSINOPHILS # (AUTO) 0.3 X10'3 (0-0.9); EOSINOPHILS % (AUTO) 1.7 % (0-6); HEMATOCRIT 31.6 % (35.0-45.0); HEMOGLOBIN 10.6 g/dl (12.0-16.0); LYMPHOCYTES % (AUTO) 5.5 % (21-51); MEAN CORPUSCULAR HGB CONC 33.7 % (33.0-36.5); MEAN CORPUSCULAR VOLUME 103.9 FL (78-98); MEAN PLATELET VOLUME 8.2 FL (7.4-10.4); MONOCYTES # (AUTO) 0.8 X10'3 (0-0.9); MONOCYTES % (AUTO) 4.7 % (2-12); NEUTROPHILS # (AUTO) 15.9 X10'3 (1.8-7.7); NEUTROPHILS % (AUTO) 87.8 % (42-75); PLATELET COUNT 179 X10'3 (140-440); RED BLOOD COUNT 3.04 X10'6 (4.20-5.60); RED CELL DISTRIBUTION WIDTH 13.3 % (11.5-14.5); WHITE BLOOD COUNT 18.1 X10'3 (4.5-11.0)
[2018-05-07 04:10] LABS: ALANINE AMINOTRANSFERASE 74 U/L (12-78); ALBUMIN 2.3 G/DL (3.4-5.0); ALBUMIN/GLOBULIN RATIO 0.6 (1.1-1.5); ALKALINE PHOSPHATASE 187 IU/L (46-116); ANION GAP 7 (8-16); ASPARTATE AMINO TRANSFERASE 66 U/L (10-37); BILIRUBIN,TOTAL 0.7 MG/DL (0.1-1.0); BLOOD UREA NITROGEN 44 MG/DL (7-18); BUN/CREATININE RATIO 55.7 (6.6-38.0); CALCIUM 8.7 MG/DL (8.5-10.1); CHLORIDE 102 MMOL/L (99-107); CREATININE 0.79 MG/DL (0.40-0.90); GLUCOSE 184 MG/DL (70-104); MAGNESIUM 2.5 MG/DL (1.5-2.4); PHOSPHORUS 3.6 MG/DL (2.3-4.5); POTASSIUM 3.7 MMOL/L (3.5-5.1); SODIUM 140 MMOL/L (135-145); TOTAL CARBON DIOXIDE 30.9 MMOL/L (24-32); TOTAL PROTEIN 6.3 G/DL (6.4-8.2); eGFR 74 ML/MIN
[2018-05-07] MEDS: nicotine 21mg patch - 24 hr TD SCH (08:00)
[2018-05-07] MEDS: acamprosate DR 333mg Tablet PO SCH ×4 (08:00→22:49)
[2018-05-07] MEDS: azithromycin/NS 500mg/250ml 250 ML IV SCH (08:24)
[2018-05-07] MEDS: CefTRIAXone/D5W-Rocephin 1gm 50 ML IV SCH (08:24)
[2018-05-07] MEDS: famotidine/PF 10 mg/ml inj IV SCH ×2 (08:24→21:08)
[2018-05-07] MEDS: furosemide 40mg/4ml inj IV SCH ×2 (08:25→21:09)
[2018-05-07] MEDS: busPIRone 5mg tablet PO SCH ×2 (08:25→21:08)
[2018-05-07] MEDS: amitriptyline 25mg tablet PO SCH (08:25)
[2018-05-07] MEDS: aripiprazole 5mg tablet PO SCH (08:25)
[2018-05-07] MEDS: levoTHYROXINE 88mcg tablet PO SCH (08:25)
[2018-05-07] MEDS: lamoTRIgine 100mg tablet PO SCH ×2 (08:25→21:07)
[2018-05-07] MEDS: lactobacillus rhamnosus 10,000 MMU CELLS/CAPSULE PO SCH ×2 (08:26→21:08)
[2018-05-07] MEDS: cyclobenzaprine 10mg tablet PO SCH (08:26)
[2018-05-07] MEDS: docusate sodium 100mg/10ml UD cup PO SCH ×2 (08:26→21:07)
[2018-05-07] MEDS: hydrOXYzine 25 MG tablet PO SCH ×4 (08:26→21:08)
[2018-05-07] MEDS: methylnaltrexone br 12mg/0.6ml inj***SubQ only SQ SCH (08:32)
[2018-05-07] MEDS: folic acid inj. 2 MG, thiamine inj. 100 MG, MVI, adult No.4 with vit. K 10 ML in dextro... IV SCH ×4 (08:41)
[2018-05-07] MEDS: heparin, porcine 5000 units/ml vial SQ SCH ×2 (08:41→21:09)
--- NOTE | 2018-05-07 11:04 | NUR ---
Reassessment: Pt remains intubated. TF at goal rate of 60 mL/hr with residuals 80-230 mL. Pt continues to receive routine Colace, Reglan, and Relistor, LBM 05/07. Will continue to follow. Recommendations: 1) Continuous TF of Vital high protein to begin at 20 mL/hr and advance by 20 mL q 8 hours to goal rate of 60 mL/hr 2) 200 mL water flush q 4 hours 3) Prealbumin q / 4) Daily wt 5) Routine bowel care 6) BSS following extubation with diet advancement to heart healthy as medically indicated Addendum: 05/07/18 at [address] Amended: Links added.
[2018-05-07] MEDS: dexmedetomidin/NS 400mcg/100ml 100 ML IV SCH (12:56)
[2018-05-07 14:15] LABS: ABG BASE EXCESS 4.2 mmol/L (-2.0-3.0); ABG HCO3 26.8 mmol/L (22.0-26.0); ABG PCO2 (T) 33.4 mmHg (32.0-45.0); ABG PH (T) 7.521 (7.350-7.450); ABG PO2 (T) 59.5 mmHg (83-108); FCOHb 0.3 % (0.5-1.5); FO2Hb 91.7 % (94-100); MINUTE VOLUME 10 L/min; PATIENT TEMPERATURE 37.1; PEEP 5 cm H2O; RESPIRATORY RATE (OBSERVED) 27 b/min; TIDAL VOLUME 360 mL; TOTAL HEMOGLOBIN 12.4 G/dl (12.0-16.0)
[2018-05-07] MEDS: midazolam 100mg in NS 100ml 100 ML IV PRN (17:13)
[2018-05-07] MEDS: traZODone 50mg tablet PO SCH (21:08)
[2018-05-07] MEDS: atorvastatin 10mg tablet PO SCH (21:08)
[2018-05-07] MEDS: prazosin 1mg capsule PO SCH (21:08)
[2018-05-07] MEDS: methylPREDNISolone sod succ/PF 40mg inj. IV SCH (21:09)
[2018-05-07] MEDS: insulin glargine (Lantus) pen - multi-dose SQ SCH (21:17)
[2018-05-08] VITALS (24 sets, daily range): BP systolic 89–158; BP diastolic 44–89
[2018-05-08] MEDS: dexmedetomidin/NS 400mcg/100ml 100 ML IV SCH (01:27)
[2018-05-08] MEDS: mineral oil/petrolatum ophthal oint EACHEYE SCH ×3 (01:27→14:00)
[2018-05-08] MEDS: metoclopramide 5 mg/ml inj IV SCH ×4 (02:04→19:45)
[2018-05-08] MEDS: insulin regular, human vial - multi-dose SQ SCH (02:12)
[2018-05-08] MEDS: ipratropium/albuterol 3ml nebule NEB SCH ×5 (02:43→20:02)
[2018-05-08 03:05] LABS: ALANINE AMINOTRANSFERASE 74 U/L (12-78); ALBUMIN 2.4 G/DL (3.4-5.0); ALBUMIN/GLOBULIN RATIO 0.6 (1.1-1.5); ALKALINE PHOSPHATASE 179 IU/L (46-116); ANION GAP 7 (8-16); ASPARTATE AMINO TRANSFERASE 55 U/L (10-37); BILIRUBIN,TOTAL 0.8 MG/DL (0.1-1.0); BLOOD UREA NITROGEN 45 MG/DL (7-18); BUN/CREATININE RATIO 52.9 (6.6-38.0); CALCIUM 8.7 MG/DL (8.5-10.1); CHLORIDE 101 MMOL/L (99-107); CREATININE 0.85 MG/DL (0.40-0.90); GLUCOSE 171 MG/DL (70-104); MAGNESIUM 2.6 MG/DL (1.5-2.4); PHOSPHORUS 5.4 MG/DL (2.3-4.5); POTASSIUM 3.8 MMOL/L (3.5-5.1); SODIUM 139 MMOL/L (135-145); TOTAL CARBON DIOXIDE 31.5 MMOL/L (24-32); TOTAL PROTEIN 6.4 G/DL (6.4-8.2); eGFR 68 ML/MIN
[2018-05-08 03:05] LABS: ABG HCO3 29.5 mmol/L (22.0-26.0); ABG OXYGEN SATURATION 93.3 % (95-98); ABG PCO2 (T) 39.1 mmHg (32.0-45.0); ABG PH (T) 7.496 (7.350-7.450); ABG PO2 (T) 67.9 mmHg (83-108); FCOHb 0.3 % (0.5-1.5); FMetHb 0.2 % (0.3-1.12); FO2Hb 92.8 % (94-100); MINUTE VOLUME 7 L/min; PATIENT TEMPERATURE 37.3; PEEP 5 cm H2O; RESPIRATORY RATE 18 b/min; RESPIRATORY RATE (OBSERVED) 19 b/min; TIDAL VOLUME 400 mL
[2018-05-08 03:16] LABS: BASOPHILS % (AUTO) 0 % (0-1); EOSINOPHILS # (AUTO) 0.3 X10'3 (0-0.9); EOSINOPHILS % (AUTO) 1.8 % (0-6); HEMATOCRIT 33.3 % (35.0-45.0); HEMOGLOBIN 11.1 g/dl (12.0-16.0); LYMPHOCYTES # (AUTO) 1.1 X10'3 (1.1-4.8); LYMPHOCYTES % (AUTO) 6.2 % (21-51); MEAN CORPUSCULAR HEMOGLOBIN 34.6 PG (27.0-31.0); MEAN CORPUSCULAR HGB CONC 33.3 % (33.0-36.5); MEAN PLATELET VOLUME 8.5 FL (7.4-10.4); MONOCYTES # (AUTO) 0.8 X10'3 (0-0.9); MONOCYTES % (AUTO) 4.5 % (2-12); NEUTROPHILS # (AUTO) 15.5 X10'3 (1.8-7.7); NEUTROPHILS % (AUTO) 87.5 % (42-75); PLATELET COUNT 172 X10'3 (140-440); RED BLOOD COUNT 3.21 X10'6 (4.20-5.60); RED CELL DISTRIBUTION WIDTH 13.1 % (11.5-14.5); WHITE BLOOD COUNT 17.7 X10'3 (4.5-11.0)
[2018-05-08] MEDS: midazolam 100mg in NS 100ml 100 ML IV PRN (04:40)
[2018-05-08] MEDS: acamprosate DR 333mg Tablet PO SCH ×2 (08:00→16:00)
[2018-05-08] MEDS: docusate sodium 100mg/10ml UD cup PO SCH ×2 (08:00→19:45)
[2018-05-08] MEDS: methylPREDNISolone sod succ/PF 40mg inj. IV SCH ×2 (08:00→19:42)
[2018-05-08] MEDS: folic acid inj. 2 MG, thiamine inj. 100 MG, MVI, adult No.4 with vit. K 10 ML in dextro... IV SCH ×4 (08:24)
[2018-05-08] MEDS: azithromycin/NS 500mg/250ml 250 ML IV SCH (08:24)
[2018-05-08] MEDS: furosemide 40mg/4ml inj IV SCH ×2 (08:25→19:42)
[2018-05-08] MEDS: heparin, porcine 5000 units/ml vial SQ SCH ×2 (08:25→19:43)
[2018-05-08] MEDS: CefTRIAXone/D5W-Rocephin 1gm 50 ML IV SCH (08:25)
[2018-05-08] MEDS: cyclobenzaprine 10mg tablet PO SCH (08:25)
[2018-05-08] MEDS: aripiprazole 5mg tablet PO SCH (08:25)
[2018-05-08] MEDS: famotidine/PF 10 mg/ml inj IV SCH ×2 (08:25→19:43)
[2018-05-08] MEDS: busPIRone 5mg tablet PO SCH ×2 (08:26→19:44)
[2018-05-08] MEDS: lamoTRIgine 100mg tablet PO SCH ×2 (08:26→19:45)
[2018-05-08] MEDS: lactobacillus rhamnosus 10,000 MMU CELLS/CAPSULE PO SCH ×2 (08:26→19:43)
[2018-05-08] MEDS: amitriptyline 25mg tablet PO SCH (08:26)
[2018-05-08] MEDS: levoTHYROXINE 88mcg tablet PO SCH (08:26)
[2018-05-08] MEDS: hydrOXYzine 25 MG tablet PO SCH ×4 (08:26→19:45)
[2018-05-08] MEDS: nicotine 21mg patch - 24 hr TD SCH (08:27)
[2018-05-08] MEDS: atorvastatin 10mg tablet PO SCH (19:44)
[2018-05-08] MEDS: prazosin 1mg capsule PO SCH (19:44)
[2018-05-08] MEDS: acetaminophen 325mg tablet PO PRN (19:44)
[2018-05-08] MEDS: traZODone 50mg tablet PO SCH (19:44)
[2018-05-08] MEDS: insulin glargine (Lantus) pen - multi-dose SQ SCH (20:47)
[2018-05-09] VITALS (22 sets, daily range): BP systolic 95–156; BP diastolic 49–81
[2018-05-09] MEDS: metoclopramide 5 mg/ml inj IV SCH ×4 (02:00→19:17)
[2018-05-09] MEDS: dexmedetomidin/NS 400mcg/100ml 100 ML IV SCH (02:14)
[2018-05-09 02:19] LABS: BASOPHILS % (AUTO) 0.2 % (0-1); EOSINOPHILS % (AUTO) 0 % (0-6); HEMATOCRIT 31.9 % (35.0-45.0); HEMOGLOBIN 10.8 g/dl (12.0-16.0); LYMPHOCYTES % (AUTO) 6.2 % (21-51); MEAN CORPUSCULAR HGB CONC 33.8 % (33.0-36.5); MEAN CORPUSCULAR VOLUME 103.5 FL (78-98); MEAN PLATELET VOLUME 7.9 FL (7.4-10.4); MONOCYTES # (AUTO) 0.9 X10'3 (0-0.9); MONOCYTES % (AUTO) 5.5 % (2-12); NEUTROPHILS # (AUTO) 13.9 X10'3 (1.8-7.7); NEUTROPHILS % (AUTO) 88.1 % (42-75); PLATELET COUNT 164 X10'3 (140-440); RED BLOOD COUNT 3.08 X10'6 (4.20-5.60); RED CELL DISTRIBUTION WIDTH 13.3 % (11.5-14.5); WHITE BLOOD COUNT 15.8 X10'3 (4.5-11.0)
[2018-05-09 02:31] LABS: ALANINE AMINOTRANSFERASE 98 U/L (12-78); ALBUMIN 2.4 G/DL (3.4-5.0); ALBUMIN/GLOBULIN RATIO 0.6 (1.1-1.5); ALKALINE PHOSPHATASE 196 IU/L (46-116); ANION GAP 7 (8-16); ASPARTATE AMINO TRANSFERASE 73 U/L (10-37); BLOOD UREA NITROGEN 35 MG/DL (7-18); BUN/CREATININE RATIO 47.9 (6.6-38.0); CALCIUM 8.3 MG/DL (8.5-10.1); CHLORIDE 100 MMOL/L (99-107); CREATININE 0.73 MG/DL (0.40-0.90); GLUCOSE 135 MG/DL (70-104); MAGNESIUM 2.4 MG/DL (1.5-2.4); PHOSPHORUS 4.1 MG/DL (2.3-4.5); POTASSIUM 3.5 MMOL/L (3.5-5.1); SODIUM 138 MMOL/L (135-145); TOTAL CARBON DIOXIDE 31.1 MMOL/L (24-32); TOTAL PROTEIN 6.3 G/DL (6.4-8.2); eGFR 82 ML/MIN
[2018-05-09] MEDS: ipratropium/albuterol 3ml nebule NEB SCH ×4 (02:45→20:02)
[2018-05-09] MEDS: famotidine/PF 10 mg/ml inj IV SCH (08:00)
[2018-05-09] MEDS: acamprosate DR 333mg Tablet PO SCH ×3 (08:00→16:00)
[2018-05-09] MEDS: folic acid inj. 2 MG, thiamine inj. 100 MG, MVI, adult No.4 with vit. K 10 ML in dextro... IV SCH ×4 (08:33)
[2018-05-09] MEDS: lactobacillus rhamnosus 10,000 MMU CELLS/CAPSULE PO SCH ×2 (08:34→19:19)
[2018-05-09] MEDS: CefTRIAXone/D5W-Rocephin 1gm 50 ML IV SCH (08:34)
[2018-05-09] MEDS: amitriptyline 25mg tablet PO SCH (08:34)
[2018-05-09] MEDS: cyclobenzaprine 10mg tablet PO SCH (08:34)
[2018-05-09] MEDS: levoTHYROXINE 88mcg tablet PO SCH (08:35)
[2018-05-09] MEDS: aripiprazole 5mg tablet PO SCH (08:35)
[2018-05-09] MEDS: lamoTRIgine 100mg tablet PO SCH ×2 (08:35→19:18)
[2018-05-09] MEDS: busPIRone 5mg tablet PO SCH ×2 (08:35→19:18)
[2018-05-09] MEDS: hydrOXYzine 25 MG tablet PO SCH ×4 (08:35→19:18)
[2018-05-09] MEDS: methylnaltrexone br 12mg/0.6ml inj***SubQ only SQ SCH (08:36)
[2018-05-09] MEDS: heparin, porcine 5000 units/ml vial SQ SCH ×2 (08:36→19:18)
[2018-05-09] MEDS: nicotine 21mg patch - 24 hr TD SCH (08:36)
[2018-05-09] MEDS: methylPREDNISolone sod succ/PF 40mg inj. IV SCH (08:36)
[2018-05-09] MEDS: docusate sodium 100mg/10ml UD cup PO SCH ×2 (08:36→19:19)
[2018-05-09] MEDS: furosemide 40mg/4ml inj IV SCH (08:36)
[2018-05-09] MEDS: furosemide 40mg tablet PO SCH (19:18)
[2018-05-09] MEDS: prazosin 1mg capsule PO SCH (19:18)
[2018-05-09] MEDS: atorvastatin 10mg tablet PO SCH (19:18)
[2018-05-09] MEDS: traZODone 50mg tablet PO SCH (19:18)
[2018-05-09] MEDS: famotidine 20mg tablet PO SCH (19:19)
[2018-05-09] MEDS: insulin glargine (Lantus) pen - multi-dose SQ SCH (21:00)
[2018-05-10] VITALS (19 sets, daily range): BP systolic 103–150; BP diastolic 49–84
[2018-05-10] MEDS: ipratropium/albuterol 3ml nebule NEB SCH ×4 (02:02→20:46)
[2018-05-10] MEDS: metoclopramide 5 mg/ml inj IV SCH ×4 (02:32→20:29)
[2018-05-10 03:00] LABS: BASOPHILS % (AUTO) 0.1 % (0-1); EOSINOPHILS # (AUTO) 0.6 X10'3 (0-0.9); EOSINOPHILS % (AUTO) 2.8 % (0-6); HEMATOCRIT 33.4 % (35.0-45.0); HEMOGLOBIN 11.3 g/dl (12.0-16.0); LYMPHOCYTES # (AUTO) 3.7 X10'3 (1.1-4.8); LYMPHOCYTES % (AUTO) 17.4 % (21-51); MEAN CORPUSCULAR HEMOGLOBIN 34.8 PG (27.0-31.0); MEAN CORPUSCULAR HGB CONC 33.9 % (33.0-36.5); MEAN CORPUSCULAR VOLUME 102.8 FL (78-98); MEAN PLATELET VOLUME 8.1 FL (7.4-10.4); MONOCYTES # (AUTO) 1.4 X10'3 (0-0.9); MONOCYTES % (AUTO) 6.6 % (2-12); NEUTROPHILS # (AUTO) 15.5 X10'3 (1.8-7.7); NEUTROPHILS % (AUTO) 73.1 % (42-75); PLATELET COUNT 189 X10'3 (140-440); RED BLOOD COUNT 3.25 X10'6 (4.20-5.60); RED CELL DISTRIBUTION WIDTH 13.6 % (11.5-14.5); WHITE BLOOD COUNT 21.2 X10'3 (4.5-11.0)
[2018-05-10 03:21] LABS: ALANINE AMINOTRANSFERASE 101 U/L (12-78); ALBUMIN 2.5 G/DL (3.4-5.0); ALBUMIN/GLOBULIN RATIO 0.7 (1.1-1.5); ALKALINE PHOSPHATASE 209 IU/L (46-116); ANION GAP 8 (8-16); ASPARTATE AMINO TRANSFERASE 73 U/L (10-37); BILIRUBIN,TOTAL 1.2 MG/DL (0.1-1.0); BLOOD UREA NITROGEN 31 MG/DL (7-18); BUN/CREATININE RATIO 34.4 (6.6-38.0); CALCIUM 8.4 MG/DL (8.5-10.1); CHLORIDE 100 MMOL/L (99-107); GLUCOSE 92 MG/DL (70-104); MAGNESIUM 2.5 MG/DL (1.5-2.4); PHOSPHORUS 3.1 MG/DL (2.3-4.5); POTASSIUM 3.1 MMOL/L (3.5-5.1); SODIUM 139 MMOL/L (135-145); TOTAL CARBON DIOXIDE 31.2 MMOL/L (24-32); TOTAL PROTEIN 6.3 G/DL (6.4-8.2); eGFR 64 ML/MIN
[2018-05-10] MEDS: potassium Cl 40MEQ/250ML bag 250 ML IV PRN (05:21)
[2018-05-10] MEDS: levoTHYROXINE 88mcg tablet PO SCH ×2 (06:52→08:00)
[2018-05-10] MEDS ORDERED: methylPREDNISolone sod succ/PF 40mg inj. IV SCH (08:00)
[2018-05-10] MEDS: lactobacillus rhamnosus 10,000 MMU CELLS/CAPSULE PO SCH ×2 (08:12→20:29)
[2018-05-10] MEDS: thiamine 100mg tablet PO SCH (08:12)
[2018-05-10] MEDS: folic acid 1mg tablet PO SCH (08:12)
[2018-05-10] MEDS: lamoTRIgine 100mg tablet PO SCH ×2 (08:12→20:29)
[2018-05-10] MEDS: hydrOXYzine 25 MG tablet PO SCH ×4 (08:12→20:30)
[2018-05-10] MEDS: aripiprazole 5mg tablet PO SCH (08:13)
[2018-05-10] MEDS: busPIRone 5mg tablet PO SCH ×2 (08:13→20:29)
[2018-05-10] MEDS: multivitamins, therapeutics tablet PO SCH (08:13)
[2018-05-10] MEDS: famotidine 20mg tablet PO SCH ×2 (08:13→20:30)
[2018-05-10] MEDS: furosemide 40mg tablet PO SCH ×2 (08:13→20:30)
[2018-05-10] MEDS: amitriptyline 25mg tablet PO SCH (08:13)
[2018-05-10] MEDS: cyclobenzaprine 10mg tablet PO SCH (08:13)
[2018-05-10] MEDS: heparin, porcine 5000 units/ml vial SQ SCH ×2 (08:14→20:30)
[2018-05-10] MEDS: nicotine 21mg patch - 24 hr TD SCH (08:14)
[2018-05-10] MEDS: CefTRIAXone/D5W-Rocephin 1gm 50 ML IV SCH (08:14)
[2018-05-10] MEDS: docusate sodium 100mg/10ml UD cup PO SCH ×2 (08:16→20:29)
--- NOTE | 2018-05-10 12:12 | NUR ---
Reassessment: PT has been extubated with TF d/c'ed. Pt on [facility] soft chopped meat diet per TRANSIT MIX OPERATOR recs. First PO intake following extubation 25% however documented PO intake 100% at breakfast this AM meeting nutrient needs. LBM 05/08. Pt likely to transfer to floors soon per spinner hydraulic at critical care rounds. Will continue to follow. Recommendations: 1. Continue with [facility] soft diet with advancement to heart healthy as medically indicated 2. Wt per rx Addendum: 05/10/18 at [address] Amended: Links added.
[2018-05-10] MEDS ORDERED: glucagon, human recombinant 1mg kit SUBCUT PRN (13:35)
[2018-05-10] MEDS ORDERED: dextrose ORAL solution 15 GM/59 ML bottle PO PRN ×2 (13:35)
[2018-05-10] MEDS ORDERED: dextrose 50%-water 50ml dispensing syringe IV PRN ×2 (13:35)
[2018-05-10] MEDS ORDERED: insulin Lispro (HumaLOG) vial - multi-dose SQ SCH (13:35)
--- NOTE | 2018-05-10 18:21 | NUR ---
Problems reprioritized. Patient report given, questions answered & plan of care reviewed with JENAE Palma.
--- NOTE | 2018-05-10 18:23 | NUR ---
Patient in room PCU 3028. I have received report from Josh EMANUEL and Deep EMANUEL and had the opportunity to ask questions and assume patient care.
--- NOTE | 2018-05-10 18:23 | NUR ---
Problems reprioritized. Patient report given, questions answered & plan of care reviewed with Minerva EMANUEL.
[2018-05-10] MEDS: traZODone 50mg tablet PO SCH (20:30)
[2018-05-10] MEDS: atorvastatin 10mg tablet PO SCH (20:30)
[2018-05-10] MEDS: prazosin 1mg capsule PO SCH (20:31)
[2018-05-10] MEDS: insulin glargine (Lantus) pen - multi-dose SQ SCH (21:00)
[2018-05-11 02:00] VITALS: BP 137/64
[2018-05-11] MEDS: ipratropium/albuterol 3ml nebule NEB SCH ×4 (02:16→21:26)
[2018-05-11] MEDS: metoclopramide 5 mg/ml inj IV SCH ×4 (02:43→19:31)
[2018-05-11 04:17] LABS: BASOPHILS # (AUTO) 0.2 X10'3 (0-0.2); BASOPHILS % (AUTO) 0.9 % (0-1); EOSINOPHILS # (AUTO) 0.8 X10'3 (0-0.9); EOSINOPHILS % (AUTO) 3.8 % (0-6); HEMATOCRIT 33.9 % (35.0-45.0); HEMOGLOBIN 11.3 g/dl (12.0-16.0); LYMPHOCYTES # (AUTO) 3.8 X10'3 (1.1-4.8); LYMPHOCYTES % (AUTO) 17.1 % (21-51); MEAN CORPUSCULAR HEMOGLOBIN 34.4 PG (27.0-31.0); MEAN CORPUSCULAR HGB CONC 33.3 % (33.0-36.5); MEAN CORPUSCULAR VOLUME 103.2 FL (78-98); MEAN PLATELET VOLUME 8.3 FL (7.4-10.4); MONOCYTES # (AUTO) 1.9 X10'3 (0-0.9); MONOCYTES % (AUTO) 8.6 % (2-12); NEUTROPHILS # (AUTO) 15.3 X10'3 (1.8-7.7); NEUTROPHILS % (AUTO) 69.6 % (42-75); PLATELET COUNT 185 X10'3 (140-440); RED BLOOD COUNT 3.29 X10'6 (4.20-5.60); RED CELL DISTRIBUTION WIDTH 13.8 % (11.5-14.5); WHITE BLOOD COUNT 21.9 X10'3 (4.5-11.0)
[2018-05-11 04:36] LABS: ALANINE AMINOTRANSFERASE 100 U/L (12-78); ALBUMIN 2.5 G/DL (3.4-5.0); ALBUMIN/GLOBULIN RATIO 0.7 (1.1-1.5); ALKALINE PHOSPHATASE 225 IU/L (46-116); ANION GAP 11 (8-16); ASPARTATE AMINO TRANSFERASE 67 U/L (10-37); BILIRUBIN,TOTAL 1.2 MG/DL (0.1-1.0); BLOOD UREA NITROGEN 27 MG/DL (7-18); BUN/CREATININE RATIO 30.3 (6.6-38.0); CALCIUM 8.1 MG/DL (8.5-10.1); CHLORIDE 99 MMOL/L (99-107); CREATININE 0.89 MG/DL (0.40-0.90); GLUCOSE 136 MG/DL (70-104); MAGNESIUM 2.2 MG/DL (1.5-2.4); PHOSPHORUS 2.7 MG/DL (2.3-4.5); SODIUM 138 MMOL/L (135-145); TOTAL CARBON DIOXIDE 28.5 MMOL/L (24-32); TOTAL PROTEIN 6.2 G/DL (6.4-8.2); eGFR 65 ML/MIN
[2018-05-11 04:44] LABS: POTASSIUM 2.9 MMOL/L (3.5-5.1)
[2018-05-11] MEDS: potassium Cl oral solution 20 MEQ/15 ML PO PRN ×3 (05:25→15:56)
[2018-05-11 06:00] VITALS: BP 126/62
--- NOTE | 2018-05-11 06:15 | NUR ---
Problems reprioritized. Patient report given, questions answered & plan of care reviewed with Luh EMANUEL.
[2018-05-11] MEDS: methylnaltrexone br 12mg/0.6ml inj***SubQ only SQ SCH (08:00)
[2018-05-11] MEDS ORDERED: magnesium Cl slow-release 64mg tablet PO PRN (09:15)
[2018-05-11] MEDS ORDERED: magnesium 4gm in 100ml NS 100 ML IV PRN (09:15)
[2018-05-11] MEDS: CefTRIAXone/D5W-Rocephin 1gm 50 ML IV SCH (10:00)
[2018-05-11] MEDS: levoTHYROXINE 88mcg tablet PO SCH (10:02)
[2018-05-11] MEDS: thiamine 100mg tablet PO SCH (10:02)
[2018-05-11] MEDS: furosemide 40mg tablet PO SCH ×2 (10:03→19:31)
[2018-05-11] MEDS: amitriptyline 25mg tablet PO SCH (10:03)
[2018-05-11] MEDS: hydrOXYzine 25 MG tablet PO SCH ×4 (10:04→21:16)
[2018-05-11] MEDS: busPIRone 5mg tablet PO SCH ×2 (10:04→19:31)
[2018-05-11] MEDS: lactobacillus rhamnosus 10,000 MMU CELLS/CAPSULE PO SCH ×2 (10:04→19:31)
[2018-05-11] MEDS: aripiprazole 5mg tablet PO SCH (10:04)
[2018-05-11] MEDS: docusate sodium 100mg/10ml UD cup PO SCH ×2 (10:04→19:31)
[2018-05-11] MEDS: nicotine 21mg patch - 24 hr TD SCH (10:06)
[2018-05-11] MEDS: famotidine 20mg tablet PO SCH ×2 (10:08→19:31)
[2018-05-11] MEDS: multivitamins, therapeutics tablet PO SCH (10:08)
[2018-05-11] MEDS: heparin, porcine 5000 units/ml vial SQ SCH ×2 (10:08→19:31)
[2018-05-11] MEDS: cyclobenzaprine 10mg tablet PO SCH (10:09)
[2018-05-11] MEDS: folic acid 1mg tablet PO SCH (10:09)
[2018-05-11] MEDS: lamoTRIgine 100mg tablet PO SCH ×2 (10:09→19:31)
[2018-05-11 11:00] VITALS: BP 140/73
[2018-05-11 12:19] LABS: CHOL/HDL RATIO 2.8 (0.00-4.99); CHOLESTEROL 149 MG/DL (0-200); HDL CHOLESTEROL 54 MG/DL (35-60); LDL CHOLESTEROL 74 MG/DL (50-100); TRIGLYCERIDES 63 MG/DL (20-135)
[2018-05-11 15:00] VITALS: BP 140/73
--- NOTE | 2018-05-11 18:45 | NUR ---
Received report from primary care nurse Luh EMANUEL and student RN Nery. Assumed patient care. Patient is awake and alert on 2L NC. In no apparent distress watching television. Call light and items of frequent use within reach. Will continue to monitor for changes.
[2018-05-11 19:00] VITALS: BP 160/70
[2018-05-11] MEDS: insulin glargine (Lantus) pen - multi-dose SQ SCH (21:00)
[2018-05-11] MEDS: atorvastatin 10mg tablet PO SCH (21:14)
[2018-05-11] MEDS: prazosin 1mg capsule PO SCH (21:14)
[2018-05-11] MEDS: traZODone 50mg tablet PO SCH (21:14)
[2018-05-11 23:00] VITALS: BP 116/63
[2018-05-12] MEDS: ipratropium/albuterol 3ml nebule NEB SCH ×2 (02:24→08:27)
[2018-05-12] MEDS: metoclopramide 5 mg/ml inj IV SCH ×2 (02:27→08:21)
[2018-05-12 03:00] VITALS: BP 109/59
[2018-05-12] MEDS: acetaminophen 325mg tablet PO PRN (04:28)
[2018-05-12 05:20] LABS: BASOPHILS # (AUTO) 0.1 X10'3 (0-0.2); BASOPHILS % (AUTO) 0.3 % (0-1); EOSINOPHILS # (AUTO) 1.3 X10'3 (0-0.9); EOSINOPHILS % (AUTO) 6.2 % (0-6); HEMATOCRIT 36.5 % (35.0-45.0); HEMOGLOBIN 12.1 g/dl (12.0-16.0); LYMPHOCYTES % (AUTO) 14.4 % (21-51); MEAN CORPUSCULAR HEMOGLOBIN 34.4 PG (27.0-31.0); MEAN CORPUSCULAR HGB CONC 33.3 % (33.0-36.5); MEAN CORPUSCULAR VOLUME 103.3 FL (78-98); MEAN PLATELET VOLUME 8.6 FL (7.4-10.4); MONOCYTES # (AUTO) 1.8 X10'3 (0-0.9); MONOCYTES % (AUTO) 8.7 % (2-12); NEUTROPHILS # (AUTO) 14.9 X10'3 (1.8-7.7); NEUTROPHILS % (AUTO) 70.4 % (42-75); PLATELET COUNT 203 X10'3 (140-440); RED BLOOD COUNT 3.53 X10'6 (4.20-5.60); RED CELL DISTRIBUTION WIDTH 14.1 % (11.5-14.5); WHITE BLOOD COUNT 21.1 X10'3 (4.5-11.0)
[2018-05-12 05:46] LABS: ALANINE AMINOTRANSFERASE 108 U/L (12-78); ALBUMIN 2.8 G/DL (3.4-5.0); ALBUMIN/GLOBULIN RATIO 0.7 (1.1-1.5); ALKALINE PHOSPHATASE 283 IU/L (46-116); ANION GAP 9 (8-16); ASPARTATE AMINO TRANSFERASE 70 U/L (10-37); BILIRUBIN,TOTAL 1.5 MG/DL (0.1-1.0); BLOOD UREA NITROGEN 20 MG/DL (7-18); BUN/CREATININE RATIO 20.4 (6.6-38.0); CALCIUM 8.7 MG/DL (8.5-10.1); CHLORIDE 101 MMOL/L (99-107); CREATININE 0.98 MG/DL (0.40-0.90); GLUCOSE 117 MG/DL (70-104); MAGNESIUM 2.2 MG/DL (1.5-2.4); PHOSPHORUS 3.6 MG/DL (2.3-4.5); POTASSIUM 3.7 MMOL/L (3.5-5.1); SODIUM 140 MMOL/L (135-145); TOTAL CARBON DIOXIDE 29.8 MMOL/L (24-32); TOTAL PROTEIN 6.7 G/DL (6.4-8.2); eGFR 58 ML/MIN
--- NOTE | 2018-05-12 06:47 | NUR ---
Patient in room PCU 3028. I have received report from Mandie EMANUEL and had the opportunity to ask questions and assume patient care.
[2018-05-12 07:00] VITALS: BP 128/66
[2018-05-12] MEDS ORDERED: predniSONE 20 mg tablet PO SCH (08:00)
[2018-05-12] MEDS: docusate sodium 100mg/10ml UD cup PO SCH (08:20)
[2018-05-12] MEDS: CefTRIAXone/D5W-Rocephin 1gm 50 ML IV SCH (08:20)
[2018-05-12] MEDS: lamoTRIgine 100mg tablet PO SCH (08:20)
[2018-05-12] MEDS: famotidine 20mg tablet PO SCH (08:20)
[2018-05-12] MEDS: levoTHYROXINE 88mcg tablet PO SCH (08:20)
[2018-05-12] MEDS: cyclobenzaprine 10mg tablet PO SCH (08:20)
[2018-05-12] MEDS: lactobacillus rhamnosus 10,000 MMU CELLS/CAPSULE PO SCH (08:20)
[2018-05-12] MEDS: thiamine 100mg tablet PO SCH (08:21)
[2018-05-12] MEDS: busPIRone 5mg tablet PO SCH (08:21)
[2018-05-12] MEDS: amitriptyline 25mg tablet PO SCH (08:21)
[2018-05-12] MEDS: aripiprazole 5mg tablet PO SCH (08:21)
[2018-05-12] MEDS: multivitamins, therapeutics tablet PO SCH (08:22)
[2018-05-12] MEDS: folic acid 1mg tablet PO SCH (08:22)
[2018-05-12] MEDS: furosemide 40mg tablet PO SCH (08:22)
[2018-05-12] MEDS: heparin, porcine 5000 units/ml vial SQ SCH (08:22)
[2018-05-12] MEDS: hydrOXYzine 25 MG tablet PO SCH (08:22)
[2018-05-12] MEDS: nicotine 21mg patch - 24 hr TD SCH (08:23)
[2018-05-12] MEDS ORDERED: azithromycin 250mg tablet PO ONE (09:05)
--- NOTE | 2018-05-12 11:52 | NUR ---
patient appears stable. Is for transfer to [facility] TCU. Report called to Digna EMANUEL. Patient transported via [facility] to [facility] 1100hrs.
[2018-05-13] MEDS ORDERED: levoTHYROXINE 112mcg tablet PO SCH (08:00)
[2018-05-13] MEDS ORDERED: azithromycin 250mg tablet PO SCH (08:00)
[2018-05-13 08:17] LABS: HBSAG SCREEN Negative (Negative); HEP A AB, IGM Negative (Negative); HEP B CORE AB, IGM Negative (Negative); HEPATITIS C ANTIBODY 8.6 s/co ratio (0.0-0.9)
== END 2018-05-12 11:15 | DRG 870 ==
LOC: ER 07:20 → ED HOLD 11:01 → ICU 2S 13:47 → PCU 3S 05-10 16:43
PROVIDERS: ADMIT Internal Medicine Critical Care Medicine; ATTEND Family Medicine
PROC: 5A1955Z Respiratory Ventilation, Greater than 96 Consecutive Hours (ICD-10-PCS; principal; 2018-04-28)
PROC: 0BH17EZ Insertion of Endotracheal Airway into Trachea, Via Natural or Artificial Opening (ICD-10-PCS; 2018-04-28)
PROC: 5A09357 Assistance with Respiratory Ventilation, Less than 24 Consecutive Hours, Continuous Positive Airway Pressure (ICD-10-PCS; 2018-04-28)
PROC: 06HM33Z Insertion of Infusion Device into Right Femoral Vein, Percutaneous Approach (ICD-10-PCS; 2018-04-28)
PROC: 04HY32Z Insertion of Monitoring Device into Lower Artery, Percutaneous Approach (ICD-10-PCS; 2018-04-28)
PROC: B54BZZA Ultrasonography of Right Lower Extremity Veins, Guidance (ICD-10-PCS; 2018-04-28)
PROC: 02HV33Z Insertion of Infusion Device into Superior Vena Cava, Percutaneous Approach (ICD-10-PCS; 2018-05-01)
PROC: B548ZZA Ultrasonography of Superior Vena Cava, Guidance (ICD-10-PCS; 2018-05-01)
DX: A41.9 Sepsis, unspecified organism (principal); J18.9 Pneumonia, unspecified organism; J96.01 Acute respiratory failure with hypoxia; Z68.41 Body mass index [BMI] 40.0-44.9, adult; E87.3 Alkalosis; J44.0 Chronic obstructive pulmonary disease with (acute) lower respiratory infection; N17.9 Acute kidney failure, unspecified; N39.0 Urinary tract infection, site not specified; E03.9 Hypothyroidism, unspecified; E87.70 Fluid overload, unspecified; E66.01 Morbid (severe) obesity due to excess calories; F32.9 Major depressive disorder, single episode, unspecified; G89.4 Chronic pain syndrome; I10 Essential (primary) hypertension; B19.20 Unspecified viral hepatitis C without hepatic coma; R74.0 Nonspecific elevation of levels of transaminase and lactic acid dehydrogenase [LDH]; E87.6 Hypokalemia; D64.9 Anemia, unspecified; F15.90 Other stimulant use, unspecified, uncomplicated; Z90.710 Acquired absence of both cervix and uterus; Z90.49 Acquired absence of other specified parts of digestive tract; Z98.891 History of uterine scar from previous surgery; Z88.6 Allergy status to analgesic agent; Z79.890 Hormone replacement therapy; Z79.899 Other long term (current) drug therapy
CPT/HCPCS: 36415; 36556; 36569; 36600; 71045; 76700; 76937; 80053; 80061; 80074; 81001; 82803; 82810; 82948; 83036; 83605; 83735; 83880; 84100; 84132; 84134; 84145; 84443; 85018; 85025; 85610; 85730; 87040; 87070; 87088; 87502; 87503; 92616; 93005; 93306; 94002; 94003; 94640; 94660; 94760; 96365; 96366; 96367; 96375; 97110; 97161; 97530; 99291; 99292; G0378; J0456; J0696; J1120; J1644; J1815; J1940; J1956; J2060; J2250; J2704; J2765; J2920; J2930; J3370; J3411; J3475; J3480; J3490; J7060; J7512; Q0177

== ENCOUNTER 2018-06-10 18:12 | Emergency (ER) | payer MEDICARE, MEDICAID ==
[~2018-06-10] VITALS: Ht 157.5 cm; Wt 96.4 kg
[2018-06-10] MEDS ORDERED: aspirin 81mg tab.chew PO ONE (19:05)
[2018-06-10 19:54] LABS: BASOPHILS # (AUTO) 0.1 X10'3 (0-0.2); BASOPHILS % (AUTO) 0.9 % (0-1); EOSINOPHILS # (AUTO) 0.1 X10'3 (0-0.9); EOSINOPHILS % (AUTO) 1.2 % (0-6); HEMOGLOBIN 11.3 g/dl (12.0-16.0); LYMPHOCYTES # (AUTO) 1.6 X10'3 (1.1-4.8); LYMPHOCYTES % (AUTO) 22.1 % (21-51); MEAN CORPUSCULAR HEMOGLOBIN 34.6 PG (27.0-31.0); MEAN CORPUSCULAR HGB CONC 34.4 % (33.0-36.5); MEAN CORPUSCULAR VOLUME 100.5 FL (78-98); MEAN PLATELET VOLUME 6.8 FL (7.4-10.4); MONOCYTES # (AUTO) 0.7 X10'3 (0-0.9); MONOCYTES % (AUTO) 10.1 % (2-12); NEUTROPHILS # (AUTO) 4.6 X10'3 (1.8-7.7); NEUTROPHILS % (AUTO) 65.7 % (42-75); PLATELET COUNT 138 X10'3 (140-440); RED BLOOD COUNT 3.28 X10'6 (4.20-5.60); RED CELL DISTRIBUTION WIDTH 15.5 % (11.5-14.5); WHITE BLOOD COUNT 7.1 X10'3 (4.5-11.0)
[2018-06-10 20:09] LABS: ALANINE AMINOTRANSFERASE 46 U/L (12-78); ALBUMIN 2.6 G/DL (3.4-5.0); ALBUMIN/GLOBULIN RATIO 0.7 (1.1-1.5); ALKALINE PHOSPHATASE 222 IU/L (46-116); ANION GAP 10 (8-16); ASPARTATE AMINO TRANSFERASE 48 U/L (10-37); BILIRUBIN,TOTAL 0.7 MG/DL (0.1-1.0); BLOOD UREA NITROGEN 14 MG/DL (7-18); CALCIUM 8.2 MG/DL (8.5-10.1); CHLORIDE 109 MMOL/L (99-107); CREATININE 0.61 MG/DL (0.40-0.90); GLUCOSE 102 MG/DL (70-104); POTASSIUM 3.5 MMOL/L (3.5-5.1); SODIUM 145 MMOL/L (135-145); TOTAL CARBON DIOXIDE 26.2 MMOL/L (24-32); TOTAL PROTEIN 6.2 G/DL (6.4-8.2); eGFR > 90 ML/MIN
[2018-06-10 20:16] LABS: MAGNESIUM 1.9 MG/DL (1.5-2.4)
--- NOTE | 2018-06-10 20:27 | NUR ---
RIBBON CLEANER HELPING PT TO RESTROOM AND WILL COLLECT URINE SAMPLE AT THE SAME TIME.
[2018-06-10 20:42] LABS: CLARITY,URINE CLEAR (Clear); COLOR,URINE YELLOW (Yellow); GLUCOSE, URINE NEGATIVE (Neg); KETONES,URINE TRACE mg/dl (Neg); LEUKOCYTE ESTERASE ,URINE NEGATIVE (Neg); NITRITES, URINE NEGATIVE (Neg); OCCULT BLOOD,URINE NEGATIVE (Neg); PH,URINE 6.5 (4.8-8.0); PROTEIN,URINE NEGATIVE (Neg)
[2018-06-10 20:44] LABS: UA COLLECTION TYPE CLN CATCH MIDSTREAM
[2018-06-10 20:54] VITALS: BP 104/36
== END 2018-06-10 21:46 | disposition home or self-care (01) ==
LOC: ER 18:12
DX: E86.0 Dehydration (principal); R53.1 Weakness; I10 Essential (primary) hypertension; J44.9 Chronic obstructive pulmonary disease, unspecified; G89.29 Other chronic pain; F15.90 Other stimulant use, unspecified, uncomplicated; Z90.49 Acquired absence of other specified parts of digestive tract; Z90.710 Acquired absence of both cervix and uterus; Z88.5 Allergy status to narcotic agent; Z79.899 Other long term (current) drug therapy
CPT/HCPCS: 36415; 71045; 80053; 81003; 83735; 83880; 84484; 85025; 93005; 99284

== ENCOUNTER 2018-06-12 11:46 | Emergency (ER) | payer MEDICARE, MEDICAID ==
[~2018-06-12] VITALS: Ht 157.5 cm; Wt 97.6 kg
[2018-06-12 11:47] VITALS: BP 141/79
[2018-06-12] MEDS ORDERED: TRAM50TA2 PO (12:07)
[2018-06-12] MEDS ORDERED: ACET-3067 PO (12:09)
== END 2018-06-12 12:25 | disposition home or self-care (01) ==
LOC: ER 11:46
DX: G89.29 Other chronic pain (principal); M54.5 Low back pain; I10 Essential (primary) hypertension; J44.9 Chronic obstructive pulmonary disease, unspecified; F15.90 Other stimulant use, unspecified, uncomplicated; Z90.49 Acquired absence of other specified parts of digestive tract; Z90.710 Acquired absence of both cervix and uterus; Z98.890 Other specified postprocedural states; Z88.5 Allergy status to narcotic agent; Z79.2 Long term (current) use of antibiotics; Z79.899 Other long term (current) drug therapy
CPT/HCPCS: 99283

== ENCOUNTER 2018-06-21 18:29 | Emergency (ER) | payer MEDICARE, MEDICAID ==
[~2018-06-21] VITALS: Ht 157.5 cm; Wt 90.9 kg
[2018-06-21 18:38] VITALS: BP 149/82
[2018-06-22] MEDS ORDERED: HYDR-4353 PO (15:58)
[2018-06-22] MEDS ORDERED: ORPH100T2 PO (15:58)
== END 2018-06-21 19:37 | disposition left against medical advice (07) ==
LOC: ER 18:29
DX: M54.9 Dorsalgia, unspecified (principal); Z53.21 Procedure and treatment not carried out due to patient leaving prior to being seen by health care provider

== ENCOUNTER 2018-06-22 14:04 | Emergency (ER) | payer MEDICARE, MEDICAID ==
[~2018-06-22] VITALS: Ht 157.5 cm; Wt 104.0 kg
[2018-06-22 14:17] VITALS: BP 158/88
[2018-06-22] MEDS ORDERED: morphine 4 MG/ML inj SYRINge IM ONE (15:40)
[2018-06-22] MEDS ORDERED: HYDROcodone/acetaminophen 10/325mg tab PO ONE (15:40)
[2018-06-22] MEDS ORDERED: orphenadrine citrate 60mg/2ml inj. IM ONE (15:40)
[2018-06-22] MEDS ORDERED: HYDR-4353 PO (15:58)
[2018-06-22] MEDS ORDERED: ORPH100T2 PO (15:58)
== END 2018-06-22 16:13 | disposition home or self-care (01) ==
LOC: ER 14:05
DX: M54.5 Low back pain (principal); M62.830 Muscle spasm of back; I10 Essential (primary) hypertension; J44.9 Chronic obstructive pulmonary disease, unspecified; F15.90 Other stimulant use, unspecified, uncomplicated; Z90.49 Acquired absence of other specified parts of digestive tract; Z90.710 Acquired absence of both cervix and uterus; Z87.891 Personal history of nicotine dependence; Z88.5 Allergy status to narcotic agent; Z79.899 Other long term (current) drug therapy
CPT/HCPCS: 96372; 99283; J2270; J2360

== ENCOUNTER 2018-07-30 17:40 | Emergency (ER) | payer MEDICARE, MEDICAID ==
[~2018-07-30] VITALS: Ht 157.5 cm; Wt 100.0 kg
[~2018-07-30 17:40] MED LIST changes: +ORPH100T2 PO
[2018-07-30] MEDS ORDERED: LORazepam 2 mg/ml vial IV ONE (17:55)
[2018-07-30] MEDS ORDERED: normal saline 1000ML IV soln IVB ONE (17:55)
[2018-07-30 18:15] LABS: CLARITY,URINE SLIGHTLY CLOUDY (Clear); COLOR,URINE YELLOW (Yellow); GLUCOSE, URINE NEGATIVE (Neg); KETONES,URINE 40 mg/dl (Neg); LEUKOCYTE ESTERASE ,URINE NEGATIVE (Neg); NITRITES, URINE NEGATIVE (Neg); OCCULT BLOOD,URINE TRACE-INTACT (Neg); PH,URINE 5.5 (4.8-8.0); PROTEIN,URINE 30 mg/dl (Neg)
[2018-07-30 18:16] LABS: URINE AMPHETAMINE SCREEN NEGATIVE (Neg); URINE BARBITUATE SCREEN NEGATIVE (Neg); URINE BENZODIAZEPINES SCREEN POSITIVE (Neg); URINE CANNABINOID SCREEN NEGATIVE (Neg); URINE COCAINE SCREEN NEGATIVE (Neg); URINE METHADONE SCREEN NEGATIVE (Neg); URINE OPIATE SCREEN POSITIVE (Neg); URINE PHENCYCLIDINE SCREEN NEGATIVE (Neg)
[2018-07-30 18:17] LABS: BASOPHILS # (AUTO) 0.1 X10'3 (0-0.2); BASOPHILS % (AUTO) 0.6 % (0-1); EOSINOPHILS % (AUTO) 0.1 % (0-6); HEMATOCRIT 37.6 % (35.0-45.0); HEMOGLOBIN 12.7 g/dl (12.0-16.0); LYMPHOCYTES % (AUTO) 14.6 % (21-51); MEAN CORPUSCULAR HEMOGLOBIN 32.6 PG (27.0-31.0); MEAN CORPUSCULAR HGB CONC 33.7 g/dL (33.0-36.5); MEAN CORPUSCULAR VOLUME 96.9 FL (78-98); MEAN PLATELET VOLUME 7.2 FL (7.4-10.4); MONOCYTES # (AUTO) 1.5 X10'3 (0-0.9); MONOCYTES % (AUTO) 11.3 % (2-12); NEUTROPHILS % (AUTO) 73.4 % (42-75); PLATELET COUNT 306 X10'3 (140-440); RED BLOOD COUNT 3.88 X10'6 (4.20-5.60); RED CELL DISTRIBUTION WIDTH 14.7 % (11.5-14.5); WHITE BLOOD COUNT 13.6 X10'3 (4.5-11.0)
[2018-07-30 18:20] LABS: UA COLLECTION TYPE STRAIGHT CATH
--- NOTE | 2018-07-30 18:20 | NUR ---
Pt laying on the stretcher. She has her eyes closed. She moves her arms and legs non stop. When she saw me she said "my mom 8 years ago." I covered her lower body with a sheet.
[2018-07-30 18:21] LABS: WBC,URINE 0-4 /HPF (0-4)
[2018-07-30 18:22] LABS: BACTERIA,URINE FEW /HPF (Neg); MUCUS STRANDS MODERATE /LPF (Neg); RBC,URINE 0-2 /HPF (0-2); SQUAMOUS EPITHELIAL CELL,UR MODERATE /LPF (FEW); TRANSITIONAL EPI CELLS,URINE MODERATE /HPF
[2018-07-30 18:32] LABS: ALANINE AMINOTRANSFERASE 28 U/L (12-78); ALBUMIN 3.4 G/DL (3.4-5.0); ALBUMIN/GLOBULIN RATIO 0.8 (1.1-1.5); ALKALINE PHOSPHATASE 216 IU/L (46-116); ANION GAP 14 (8-16); ASPARTATE AMINO TRANSFERASE 63 U/L (10-37); BILIRUBIN,TOTAL 2.8 MG/DL (0.1-1.0); BLOOD UREA NITROGEN 18 MG/DL (7-18); BUN/CREATININE RATIO 15.9 (6.6-38.0); CALCIUM 9.7 MG/DL (8.5-10.1); CHLORIDE 108 MMOL/L (99-107); CREATININE 1.13 MG/DL (0.40-0.90); GLUCOSE 118 MG/DL (70-104); POTASSIUM 3.7 MMOL/L (3.5-5.1); SODIUM 147 MMOL/L (135-145); TOTAL CARBON DIOXIDE 25.2 MMOL/L (24-32); TOTAL PROTEIN 7.6 G/DL (6.4-8.2); eGFR 49 ML/MIN
[2018-07-30] MEDS ORDERED: LORazepam 2 mg/ml vial IV STA (18:32)
--- NOTE | 2018-07-30 18:32 | NUR ---
spoke to about how she is acting now, she is rolling side to side in her bed and I just can't get her to settle. So he ordered ativan 1 mg IV. Order written.
[2018-07-30 18:44] LABS: ETHANOL < 0.010 GM/DL (0.0-0.010); MAGNESIUM 1.7 MG/DL (1.5-2.4)
[2018-07-30 18:48] LABS: ACETAMINOPHEN < 2.0 UG/ML (10-30)
--- NOTE | 2018-07-30 18:54 | NUR ---
She is finally not moving around and appears to be more comfortable.
[2018-07-30 18:55] VITALS: BP 145/66
--- NOTE | 2018-07-30 19:49 | NUR ---
Pt was awakened and she is now being ambulated in the halls and is doing much better. She is conversing with the MD now at his station.
--- NOTE | 2018-07-30 20:23 | NUR ---
got the patient and she is in a wheelchair awaiting her dad to come and pick her up after I called him to come and get her.
== END 2018-07-30 20:37 | disposition home or self-care (01) ==
LOC: ER 17:41
DX: F41.9 Anxiety disorder, unspecified (principal); F32.9 Major depressive disorder, single episode, unspecified; R05 Cough; I10 Essential (primary) hypertension; J44.9 Chronic obstructive pulmonary disease, unspecified; G89.29 Other chronic pain; F15.90 Other stimulant use, unspecified, uncomplicated; Z90.49 Acquired absence of other specified parts of digestive tract; Z90.710 Acquired absence of both cervix and uterus; Z88.5 Allergy status to narcotic agent; Z79.899 Other long term (current) drug therapy
CPT/HCPCS: 36415; 80053; 80305; 80320; 80329; 81001; 83735; 84443; 85025; 93005; 96374; 96376; 99284; J2060; J7030; P9612

== ENCOUNTER 2019-04-22 12:31 | Inpatient (IN) | payer MEDICARE, MEDICAID ==
[~2019-04-22] VITALS: Ht 157.5 cm; Wt 97.7 kg
[~2019-04-22 12:31] MED LIST changes: -AMIT-106 PO; +AMIT25TA9 PO; +SIMV-42 PO; -SIMV20TA5 PO
[2019-04-22] MEDS ORDERED: SERT25TA PO (13:04)
[2019-04-22] MEDS ORDERED: PRAV40TA3 PO (13:04)
[2019-04-22 13:35] LABS: BASOPHILS # (AUTO) 0.2 X10'3 (0-0.2); BASOPHILS % (AUTO) 0.9 % (0-1); EOSINOPHILS % (AUTO) 0.2 % (0-6); HEMATOCRIT 36.7 % (35.0-45.0); HEMOGLOBIN 12.6 g/dl (12.0-16.0); LYMPHOCYTES # (AUTO) 1.5 X10'3 (1.1-4.8); LYMPHOCYTES % (AUTO) 6.6 % (21-51); MEAN CORPUSCULAR HEMOGLOBIN 33.1 PG (27.0-31.0); MEAN CORPUSCULAR HGB CONC 34.5 g/dL (33.0-36.5); MEAN CORPUSCULAR VOLUME 96.1 FL (78-98); MEAN PLATELET VOLUME 7.8 FL (7.4-10.4); MONOCYTES % (AUTO) 4.5 % (2-12); NEUTROPHILS # (AUTO) 19.4 X10'3 (1.8-7.7); NEUTROPHILS % (AUTO) 87.8 % (42-75); PLATELET COUNT 218 X10'3 (140-440); RED BLOOD COUNT 3.82 X10'6 (4.20-5.60); WHITE BLOOD COUNT 22.1 X10'3 (4.5-11.0)
[2019-04-22 13:51] LABS: ALANINE AMINOTRANSFERASE 19 U/L (12-78); ALBUMIN 3.1 G/DL (3.4-5.0); ALBUMIN/GLOBULIN RATIO 0.8 (1.1-1.5); ALKALINE PHOSPHATASE 160 IU/L (46-116); ANION GAP 12 (8-16); ASPARTATE AMINO TRANSFERASE 71 U/L (10-37); BILIRUBIN,TOTAL 1.1 MG/DL (0.1-1.0); BLOOD UREA NITROGEN 26 MG/DL (7-18); CALCIUM 8.9 MG/DL (8.5-10.1); CHLORIDE 105 MMOL/L (99-107); GLUCOSE 121 MG/DL (70-104); POTASSIUM 3.8 MMOL/L (3.5-5.1); SODIUM 139 MMOL/L (135-145); TOTAL CARBON DIOXIDE 22.1 MMOL/L (24-32); TOTAL PROTEIN 7.1 G/DL (6.4-8.2); eGFR 57 ML/MIN
[2019-04-22] MEDS ORDERED: dexamethasone sod phosphate 10mg/ml inj IV STA (13:53)
[2019-04-22] MEDS ORDERED: ipratropium/albuterol 3ml nebule NEB ONE (13:55)
[2019-04-22] MEDS ORDERED: heparin 10,000 units/1 ML INJ IV ONE (14:15)
[2019-04-22] MEDS ORDERED: azithromycin 250mg tablet PO ONE (14:15)
[2019-04-22] MEDS ORDERED: CefTRIAXone 2gm/D5W 50ml 50 ML IV ONE (14:15)
[2019-04-22] MEDS ORDERED: aspirin 81mg tab.chew PO ONE (14:15)
[2019-04-22 14:32] LABS: PARTIAL THROMBOPLASTIN TIME 30 SECONDS (22-32)
[2019-04-22] MEDS: heparin 25,000 UNIT/250ml bag 250 ML IV SCH (14:35)
[2019-04-22] MEDS ORDERED: acetaminophen 325mg tablet PO PRN (15:10)
[2019-04-22] MEDS ORDERED: potassium Cl 20 mEq SR tablet PO PRN (15:10)
[2019-04-22] MEDS ORDERED: magnesium 4gm in 100ml NS 100 ML IV PRN (15:10)
[2019-04-22] MEDS ORDERED: potassium CL 10mEq/100ml bag 100 ML IV PRN ×2 (15:10)
[2019-04-22] MEDS ORDERED: albuterol 2.5 MG/3 ML nebule NEB PRN (15:10)
[2019-04-22] MEDS ORDERED: magnesium 2GM in 50ml NS 50 ML IV PRN (15:10)
[2019-04-22] MEDS ORDERED: magnesium Cl slow-release 64mg tablet PO PRN (15:10)
--- NOTE | 2019-04-22 16:10 | NUR ---
spoke to dr. fong regarding pt's o2 saturation dropping, pt. getting more diaphoretic and elevated 3hr troponin of 2.15.
--- NOTE | 2019-04-22 16:15 | NUR ---
spoke to regarding pt's elevated trop, o2 saturation and pt. getting more diaphoretic.
--- NOTE | 2019-04-22 16:23 | NUR ---
pt placed on non-rebreather at 13L, o2 saturation is 96% and states "I feel like a can take a breathe". saturation prior to non-rebreather was 85-88%. obtained a repeat ekg.
[2019-04-22] MEDS ORDERED: LEVO100T PO (16:36)
[2019-04-22] MEDS ORDERED: LORazepam 2 mg/ml vial IV ONE (17:15)
--- NOTE | 2019-04-22 17:29 | NUR ---
received a verbal order of 1mg of ativan per dr. fong. pt. was becoming more agitated and increased work of breathing.
--- NOTE | 2019-04-22 17:43 | NUR ---
weaning pt. off the non-rebreather currently on 8L, will continue to decrease oxygen
[2019-04-22] MEDS: ipratropium/albuterol 3ml nebule NEB PRN (17:54)
--- NOTE | 2019-04-22 18:12 | NUR ---
called dr. fong, regarding pt's oxygen saturation. pt. is on 6L on N/C. called dr. fong to suggest BIPAP, AND SHE WANTS T0 SEE HER FIRST
[2019-04-22 18:46] LABS: ABG BASE EXCESS -5.2 mmol/L (-2.0-3.0); ABG HCO3 19.5 mmol/L (22.0-26.0); ABG OXYGEN SATURATION 95.9 % (95-98); ABG PCO2 (T) 35.2 mmHg (35.0-45.0); ABG PH (T) 7.361 (7.350-7.450); ABG PO2 (T) 82.3 mmHg (83-108); ALLEN'S TEST Positive; FCOHb 1.5 % (0.5-1.5); FLOW 15 L/min; FMetHb 0.1 % (0.3-1.12); FO2Hb 94.4 % (94-100); RESPIRATORY RATE (OBSERVED) 22 b/min; TOTAL HEMOGLOBIN 13.5 G/dl (12.0-16.0)
[2019-04-22] MEDS ORDERED: methylPREDNISolone sod succ 125mg/2ml vial IV ONE (19:00)
[2019-04-22] MEDS ORDERED: furosemide 10 MG/1 ML 10ml inj IV ONE (19:15)
--- NOTE | 2019-04-22 19:15 | NUR ---
Spoke to MD Alejo over the phone who ordered venous US of bilateral lower extremities. ANTON Ramon is at bedside evaluating the pt.
--- NOTE | 2019-04-22 19:30 | NUR ---
Pt tore apart her BiPAP tubing stating that she needed to use the bathroom. Pt was switched to non-rebreacher mask.
--- NOTE | 2019-04-22 19:34 | NUR ---
Pt. anxious/restless, RR 30 and very jittery. Pt. agreeable to taking prn ativan.
[2019-04-22] MEDS: LORazepam 2 mg/ml vial IV PRN (19:38)
--- NOTE | 2019-04-22 19:41 | NUR ---
US at bedside performing venous doppler at this time.
[2019-04-22] MEDS: K and/or MAG REPLACEMENT MC SCH (20:00)
[2019-04-22] MEDS ORDERED: busPIRone 5mg tablet PO SCH (20:00)
--- NOTE | 2019-04-22 20:30 | NUR ---
pt had 1mg buspar ordered from 5mg tab. Notified pharmacy who reported dose was to be 10mg and that they will correct the EMAR
--- NOTE | 2019-04-22 20:40 | NUR ---
pt arrived to the PCU unit from the ER via jontahan. pt is very anxious at this time. pt is alert to herself but does not seem to know where she currently is nor what is going on. redirecting pt and using therapeutic communication to calm down pt. will continue to monitor pt
[2019-04-22 20:50] LABS: URINE AMPHETAMINE SCREEN NEGATIVE (Neg); URINE BARBITUATE SCREEN NEGATIVE (Neg); URINE BENZODIAZEPINES SCREEN POSITIVE (Neg); URINE CANNABINOID SCREEN POSITIVE (Neg); URINE COCAINE SCREEN NEGATIVE (Neg); URINE METHADONE SCREEN NEGATIVE (Neg); URINE OPIATE SCREEN POSITIVE (Neg); URINE PHENCYCLIDINE SCREEN NEGATIVE (Neg)
[2019-04-22 21:20] LABS: ABG BASE EXCESS -6.1 mmol/L (-2.0-3.0); ABG HCO3 20.5 mmol/L (22.0-26.0); ABG OXYGEN SATURATION 94.5 % (95-98); ABG PCO2 (T) 43.7 mmHg (35.0-45.0); ABG PH (T) 7.287 (7.350-7.450); ABG PO2 (T) 77.6 mmHg (83-108); ALLEN'S TEST Positive; FCOHb 1.4 % (0.5-1.5); FMetHb 0.2 % (0.3-1.12); MINUTE VOLUME 39 L/min; PATIENT TEMPERATURE 36.7; RESPIRATORY RATE 12 b/min; RESPIRATORY RATE (OBSERVED) 35 b/min
[2019-04-22 22:09] LABS: D-DIMER 1.68 MG/L FEU (0-0.50)
[2019-04-22 23:00] VITALS: BP 107/68
--- NOTE | 2019-04-22 23:00 | NUR ---
PAGER ID: [phone] MESSAGE: Mini Bhatti [id number] admitted for COPD exacerbation, is getting Ativan 1mg q6Hr she received it 3 hours ago and is still very anxious and pulling out her IVs. I was wondering if we could increase the frequency please? Thanks Sharmila EMANUEL [phone]
--- NOTE | 2019-04-22 23:00 | NUR ---
Cardiac PTT was 57, therapeutic range, will continue to keep heparin GTT running at 10mls/hr. will continue to monitor pt
[2019-04-22] MEDS: ARIPIPRAZOLE 10 MG TABLET PO SCH (23:07)
[2019-04-22] MEDS: prazosin 1mg capsule PO SCH (23:07)
[2019-04-22] MEDS: pravastatin 40mg tablet PO SCH (23:07)
[2019-04-22] MEDS: traZODone 50mg tablet PO SCH (23:07)
[2019-04-23 02:04] LABS: BASOPHILS % (AUTO) 0.1 % (0-1); EOSINOPHILS % (AUTO) 0 % (0-6); HEMATOCRIT 34.6 % (35.0-45.0); HEMOGLOBIN 11.9 g/dl (12.0-16.0); LYMPHOCYTES # (AUTO) 0.9 X10'3 (1.1-4.8); LYMPHOCYTES % (AUTO) 7.4 % (21-51); MEAN CORPUSCULAR HEMOGLOBIN 33.2 PG (27.0-31.0); MEAN CORPUSCULAR HGB CONC 34.5 g/dL (33.0-36.5); MEAN CORPUSCULAR VOLUME 96.2 FL (78-98); MEAN PLATELET VOLUME 8.1 FL (7.4-10.4); MONOCYTES # (AUTO) 0.4 X10'3 (0-0.9); MONOCYTES % (AUTO) 3.4 % (2-12); NEUTROPHILS # (AUTO) 10.9 X10'3 (1.8-7.7); NEUTROPHILS % (AUTO) 89.1 % (42-75); PLATELET COUNT 135 X10'3 (140-440); RED BLOOD COUNT 3.59 X10'6 (4.20-5.60); RED CELL DISTRIBUTION WIDTH 14.9 % (11.5-14.5); WHITE BLOOD COUNT 12.3 X10'3 (4.5-11.0)
[2019-04-23 02:20] LABS: ALBUMIN 2.8 G/DL (3.4-5.0); ANION GAP 12 (8-16); BLOOD UREA NITROGEN 31 MG/DL (7-18); BUN/CREATININE RATIO 28.2 (6.6-38.0); CALCIUM 8.2 MG/DL (8.5-10.1); CHLORIDE 103 MMOL/L (99-107); CHOL/HDL RATIO 4.1 (0.00-4.99); CHOLESTEROL 144 MG/DL (0-200); GLUCOSE 165 MG/DL (70-104); HDL CHOLESTEROL 35 MG/DL (35-60); LDL CHOLESTEROL 89 MG/DL (50-100); POTASSIUM 3.4 MMOL/L (3.5-5.1); SODIUM 139 MMOL/L (135-145); TOTAL CARBON DIOXIDE 23.9 MMOL/L (24-32); TRIGLYCERIDES 85 MG/DL (20-135); eGFR 51 ML/MIN
[2019-04-23] MEDS: methylPREDNISolone sod succ 125mg/2ml vial IV SCH ×4 (02:23→20:17)
[2019-04-23] MEDS: LORazepam 2 mg/ml vial IV PRN ×3 (02:23→20:37)
--- NOTE | 2019-04-23 02:44 | NUR ---
PAGER ID: [phone] MESSAGE: Mini Bhatti [id number] admitted with COPD exacerbation. 12 trop 2.79 elevated from 1.98 Thank you Sahrmila EMANUEL [phone]
--- NOTE | 2019-04-23 06:24 | NUR ---
Problems reprioritized. Patient report given, questions answered & plan of care reviewed with Ivana EMANUEL.
--- NOTE | 2019-04-23 06:36 | NUR ---
Patient in room PCU 3016. I have received report from JENAE Doll and had the opportunity to ask questions and assume patient care.
[2019-04-23 07:00] VITALS: BP 113/50
[2019-04-23] MEDS: ipratropium/albuterol 3ml nebule NEB PRN (07:26)
--- NOTE | 2019-04-23 07:30 | NUR ---
Patient found to have increased restlessness. Spoke with Dr. Crump, new order noted for Ativan 1mg IV x1 and stat chest x-ray.
[2019-04-23] MEDS ORDERED: LORazepam 2 mg/ml vial IV ONE (07:40)
[2019-04-23] MEDS: levoTHYROXINE 100mcg tablet PO SCH (07:53)
[2019-04-23] MEDS: potassium Cl 20 mEq SR tablet PO PRN ×3 (07:53→20:20)
[2019-04-23] MEDS: busPIRone 5mg tablet PO SCH ×2 (07:53→20:19)
[2019-04-23] MEDS: sertraline 50mg tablet PO SCH (07:54)
[2019-04-23] MEDS: CefTRIAXone/D5W-Rocephin 1gm 50 ML IV SCH (07:54)
[2019-04-23] MEDS: K and/or MAG REPLACEMENT MC SCH ×2 (07:54→20:00)
--- NOTE | 2019-04-23 08:04 | NUR ---
PT. FOUND ON NRB. BROUGHT DENICEJOSE TO DO PRN TREATMENT WITH PT. SATS DROPPED QUICKLY WHEN SWITCHING OVER TO SALT. SVN TREATMENT COMPLETED AND PT PLACED BACK ON BI-PAP. RN GOT ANXIETY MEDS AND PT. NOW ON BI-PAP Addendum: 04/23/19 at 0807 by Kiran Reza RT Amended: Links added.
[2019-04-23] MEDS: azithromycin 250mg tablet PO SCH (08:11)
[2019-04-23 11:00] VITALS: BP 132/50
--- NOTE | 2019-04-23 11:20 | NUR ---
Patient having increased anxiety, Dr. Randhawa at bedside, new order for Zyprexa 2.5mg x1 now and may repeat Zyprexa 2.5mg in 1 hour if medication ineffective.
[2019-04-23] MEDS ORDERED: OLANZapine **IM** 10 mg inj. IM ONE ×2 (11:25→12:25)
[2019-04-23] MEDS: heparin 10,000 units/1 ML INJ IV PRN (11:38)
[2019-04-23] MEDS: heparin 25,000 UNIT/250ml bag 250 ML IV SCH ×2 (11:39→14:58)
[2019-04-23] MEDS ORDERED: furosemide 40mg/4ml inj ONE (12:21)
[2019-04-23] MEDS: furosemide 40mg/4ml inj IV SCH ×2 (12:24→20:17)
[2019-04-23 12:46] LABS: ABG BASE EXCESS 1.8 mmol/L (-2.0-3.0); ABG HCO3 26.4 mmol/L (22.0-26.0); ABG OXYGEN SATURATION 94.7 % (95-98); ABG PCO2 (T) 41.2 mmHg (35.0-45.0); ABG PH (T) 7.424 (7.350-7.450); ABG PO2 (T) 70.6 mmHg (83-108); ALLEN'S TEST Positive; FCOHb 0.1 % (0.5-1.5); FMetHb 0.1 % (0.3-1.12); FO2Hb 94.5 % (94-100); MINUTE VOLUME 37 L/min; RESPIRATORY RATE 20 b/min; RESPIRATORY RATE (OBSERVED) 55 b/min; TOTAL HEMOGLOBIN 13.2 G/dl (12.0-16.0)
--- NOTE | 2019-04-23 12:58 | NUR ---
Called and spoke with Dr. Crump, new order for roy cath per protocol and for sitter at bedside.
--- NOTE | 2019-04-23 13:26 | NUR ---
18french roy catheter inserted per protocol. Patient tolerated procedure well. Will continue to monitor.
--- NOTE | 2019-04-23 13:50 | NUR ---
Patient having increased restlessness, PRN dose of Zypreza given. Will continue to monitor.
[2019-04-23 15:00] VITALS: BP 116/62
[2019-04-23] MEDS ORDERED: LAMO100T PO (15:20)
[2019-04-23 18:00] VITALS: BP 116/62
--- NOTE | 2019-04-23 18:55 | NUR ---
Problems reprioritized. Patient report given, questions answered & plan of care reviewed with JENAE Carlisle.
--- NOTE | 2019-04-23 18:56 | NUR ---
Patient in room PCU 3023. I have received report from Ivana EMANUEL and had the opportunity to ask questions and assume patient care.
--- NOTE | 2019-04-23 19:11 | NUR ---
IV spreadsheet was incorrect. Heparin was running at 12.28units/hr not 10. Adjusted rate per protocol down to 11.28 units/hour.
[2019-04-23 20:00] VITALS: BP 96/68
[2019-04-23] MEDS: famotidine 20mg tablet PO SCH (20:18)
[2019-04-23] MEDS: traZODone 50mg tablet PO SCH (20:18)
[2019-04-23] MEDS: ARIPIPRAZOLE 10 MG TABLET PO SCH (20:18)
[2019-04-23] MEDS: prazosin 1mg capsule PO SCH (20:18)
[2019-04-23] MEDS: pravastatin 40mg tablet PO SCH (20:18)
[2019-04-23] MEDS: lactobacillus rhamnosus 10,000 MMU CELLS/CAPSULE PO SCH (20:19)
[2019-04-23] MEDS ORDERED: famotidine 20mg tablet PO SCH (21:00)
[2019-04-23 22:00] VITALS: BP 94/74
--- NOTE | 2019-04-23 22:49 | NUR ---
PAGER ID: [phone] MESSAGE: Anahi Bhatti [id number]-Admitted for COPD exacerbation.Her sats have been staying in the 80s and sometimes dropping to the high 70s. No tolerating Bipap. Currently on non-rebreather at 15L. Her respiration rate is between 40-60. -Maylin EMANUEL [phone]
[2019-04-23] MEDS ORDERED: morphine oral 20mg/ml (conc. morphine) 1ml oral syringe PO ONE (22:55)
[2019-04-23 23:46] LABS: ABG BASE EXCESS 3.5 mmol/L (-2.0-3.0); ABG HCO3 27.7 mmol/L (22.0-26.0); ABG OXYGEN SATURATION 93.9 % (95-98); ABG PCO2 (T) 40.6 mmHg (35.0-45.0); ABG PH (T) 7.452 (7.350-7.450); ABG PO2 (T) 68.8 mmHg (83-108); ALLEN'S TEST Positive; FCOHb 0.3 % (0.5-1.5); FMetHb 0.2 % (0.3-1.12); FO2Hb 93.4 % (94-100); MINUTE VOLUME 33 L/min; PATIENT TEMPERATURE 37.1; RESPIRATORY RATE 20 b/min; RESPIRATORY RATE (OBSERVED) 65 b/min; TOTAL HEMOGLOBIN 12.6 G/dl (12.0-16.0)
[2019-04-24] VITALS (9 sets, daily range): BP systolic 105–122; BP diastolic 49–64
[2019-04-24] MEDS ORDERED: ziprasidone IM 20mg inj **IM only IM ONE (00:05)
--- NOTE | 2019-04-24 00:12 | NUR ---
Barcode on morphine would not scan. Verified with a second nurse. Lilli Dukes RN.
[2019-04-24] MEDS: methylPREDNISolone sod succ 125mg/2ml vial IV SCH ×4 (01:13→20:23)
[2019-04-24] MEDS: furosemide 40mg/4ml inj IV SCH ×4 (01:13→20:22)
[2019-04-24 02:03] LABS: BASOPHILS % (AUTO) 0 % (0-1); EOSINOPHILS % (AUTO) 0 % (0-6); HEMATOCRIT 33.3 % (35.0-45.0); HEMOGLOBIN 11.5 g/dl (12.0-16.0); LYMPHOCYTES # (AUTO) 0.8 X10'3 (1.1-4.8); LYMPHOCYTES % (AUTO) 8.1 % (21-51); MEAN CORPUSCULAR HEMOGLOBIN 32.9 PG (27.0-31.0); MEAN CORPUSCULAR HGB CONC 34.6 g/dL (33.0-36.5); MEAN CORPUSCULAR VOLUME 95.3 FL (78-98); MEAN PLATELET VOLUME 7.9 FL (7.4-10.4); MONOCYTES # (AUTO) 0.4 X10'3 (0-0.9); MONOCYTES % (AUTO) 4.3 % (2-12); NEUTROPHILS # (AUTO) 8.9 X10'3 (1.8-7.7); NEUTROPHILS % (AUTO) 87.6 % (42-75); PLATELET COUNT 163 X10'3 (140-440); RED BLOOD COUNT 3.49 X10'6 (4.20-5.60); RED CELL DISTRIBUTION WIDTH 14.5 % (11.5-14.5); WHITE BLOOD COUNT 10.2 X10'3 (4.5-11.0)
[2019-04-24 02:08] LABS: ALBUMIN 2.9 G/DL (3.4-5.0); ANION GAP 10 (8-16); BLOOD UREA NITROGEN 38 MG/DL (7-18); BUN/CREATININE RATIO 41.3 (6.6-38.0); CALCIUM 8.7 MG/DL (8.5-10.1); CHLORIDE 106 MMOL/L (99-107); CREATININE 0.92 MG/DL (0.40-0.90); GLUCOSE 142 MG/DL (70-104); MAGNESIUM 2.3 MG/DL (1.5-2.4); POTASSIUM 3.9 MMOL/L (3.5-5.1); SODIUM 142 MMOL/L (135-145); TOTAL CARBON DIOXIDE 26.5 MMOL/L (24-32); eGFR 62 ML/MIN
[2019-04-24] MEDS: LORazepam 2 mg/ml vial IV PRN (03:58)
--- NOTE | 2019-04-24 04:15 | NUR ---
Patient was combative with staff and pulling lines. MD ordered soft wrist restraints.
--- NOTE | 2019-04-24 06:25 | NUR ---
Problems reprioritized. Patient report given, questions answered & plan of care reviewed with Digna EMANUEL.
--- NOTE | 2019-04-24 06:34 | NUR ---
Patient in room PCU 3023. I have received report from JENAE Carlisle and had the opportunity to ask questions and assume patient care.
[2019-04-24] MEDS: K and/or MAG REPLACEMENT MC SCH ×2 (08:00→20:00)
[2019-04-24] MEDS: CefTRIAXone/D5W-Rocephin 1gm 50 ML IV SCH (08:17)
[2019-04-24] MEDS: levoTHYROXINE 100mcg tablet PO SCH (08:17)
[2019-04-24] MEDS: lactobacillus rhamnosus 10,000 MMU CELLS/CAPSULE PO SCH ×2 (08:18→20:23)
[2019-04-24] MEDS: sertraline 50mg tablet PO SCH (08:19)
[2019-04-24] MEDS: busPIRone 5mg tablet PO SCH ×2 (08:19→20:23)
[2019-04-24] MEDS: azithromycin 250mg tablet PO SCH (08:19)
[2019-04-24] MEDS: oseltamivir phos 75mg capsule PO SCH ×2 (10:44→20:23)
[2019-04-24] MEDS: heparin 25,000 UNIT/250ml bag 250 ML IV SCH (16:57)
--- NOTE | 2019-04-24 18:20 | NUR ---
Problems reprioritized. Patient report given, questions answered & plan of care reviewed with JENAE Carlisle.
[2019-04-24] MEDS: prazosin 1mg capsule PO SCH (20:23)
[2019-04-24] MEDS: pravastatin 40mg tablet PO SCH (20:23)
[2019-04-24] MEDS: traZODone 50mg tablet PO SCH (20:23)
[2019-04-24] MEDS: ARIPIPRAZOLE 10 MG TABLET PO SCH (20:23)
[2019-04-24] MEDS: famotidine 20mg tablet PO SCH (21:00)
[2019-04-25] VITALS (8 sets, daily range): BP systolic 96–131; BP diastolic 48–67
[2019-04-25] MEDS: LORazepam 2 mg/ml vial IV PRN (01:35)
[2019-04-25] MEDS: furosemide 40mg/4ml inj IV SCH ×4 (01:40→21:50)
[2019-04-25] MEDS: methylPREDNISolone sod succ 125mg/2ml vial IV SCH ×4 (01:40→21:33)
[2019-04-25 03:04] LABS: BASOPHILS % (AUTO) 0.1 % (0-1); EOSINOPHILS % (AUTO) 0 % (0-6); HEMATOCRIT 35.7 % (35.0-45.0); HEMOGLOBIN 12.3 g/dl (12.0-16.0); LYMPHOCYTES # (AUTO) 0.9 X10'3 (1.1-4.8); LYMPHOCYTES % (AUTO) 12.8 % (21-51); MEAN CORPUSCULAR HEMOGLOBIN 33.2 PG (27.0-31.0); MEAN CORPUSCULAR HGB CONC 34.5 g/dL (33.0-36.5); MEAN CORPUSCULAR VOLUME 96.4 FL (78-98); MEAN PLATELET VOLUME 7.4 FL (7.4-10.4); MONOCYTES # (AUTO) 0.5 X10'3 (0-0.9); MONOCYTES % (AUTO) 6.8 % (2-12); NEUTROPHILS # (AUTO) 5.4 X10'3 (1.8-7.7); NEUTROPHILS % (AUTO) 80.3 % (42-75); PLATELET COUNT 168 X10'3 (140-440); RED CELL DISTRIBUTION WIDTH 14.7 % (11.5-14.5); WHITE BLOOD COUNT 6.7 X10'3 (4.5-11.0)
[2019-04-25 03:10] LABS: ALBUMIN 3.1 G/DL (3.4-5.0); ANION GAP 7 (8-16); BLOOD UREA NITROGEN 48 MG/DL (7-18); BUN/CREATININE RATIO 49.5 (6.6-38.0); CALCIUM 8.6 MG/DL (8.5-10.1); CHLORIDE 104 MMOL/L (99-107); CREATININE 0.97 MG/DL (0.40-0.90); GLUCOSE 156 MG/DL (70-104); MAGNESIUM 2.4 MG/DL (1.5-2.4); POTASSIUM 3.2 MMOL/L (3.5-5.1); SODIUM 143 MMOL/L (135-145); TOTAL CARBON DIOXIDE 31.6 MMOL/L (24-32); eGFR 59 ML/MIN
--- NOTE | 2019-04-25 06:23 | NUR ---
Problems reprioritized. Patient report given, questions answered & plan of care reviewed with Corin EMANUEL.
--- NOTE | 2019-04-25 06:43 | NUR ---
Patient in room PCU 3023. I have received report from Maylin EMANUEL and had the opportunity to ask questions and assume patient care.
[2019-04-25] MEDS: clopidogrel 75mg tablet PO SCH (07:44)
[2019-04-25] MEDS: busPIRone 5mg tablet PO SCH ×2 (07:44→21:36)
[2019-04-25] MEDS: oseltamivir phos 75mg capsule PO SCH ×2 (07:45→21:35)
[2019-04-25] MEDS: CefTRIAXone/D5W-Rocephin 1gm 50 ML IV SCH (07:45)
[2019-04-25] MEDS: azithromycin 250mg tablet PO SCH (07:45)
[2019-04-25] MEDS: lactobacillus rhamnosus 10,000 MMU CELLS/CAPSULE PO SCH ×2 (07:45→21:36)
[2019-04-25] MEDS: potassium Cl 20 mEq SR tablet PO PRN ×2 (07:45→12:38)
[2019-04-25] MEDS: sertraline 50mg tablet PO SCH (07:45)
[2019-04-25] MEDS: levoTHYROXINE 100mcg tablet PO SCH (07:45)
[2019-04-25] MEDS: K and/or MAG REPLACEMENT MC SCH ×3 (08:00→20:00)
[2019-04-25] MEDS: ipratropium/albuterol 3ml nebule NEB PRN (11:02)
[2019-04-25] MEDS: traMADol 50MG tablet PO PRN ×2 (12:38→19:26)
--- NOTE | 2019-04-25 14:12 | NUR ---
Page Dr. Crump PAGER ID: [phone] MESSAGE: Room 3023B Mini Bhatti: Patient is having some red tinged urine in her catheter line. Please advise, thank you. Corin ext [phone].
--- NOTE | 2019-04-25 14:13 | NUR ---
Spoke with Dr. Crump regarding patient's condition and orders to monitor urine.
[2019-04-25] MEDS: heparin 25,000 UNIT/250ml bag 250 ML IV SCH ×2 (15:15→23:16)
--- NOTE | 2019-04-25 16:51 | NUR ---
Page Theron PAGER ID: [phone] MESSAGE: Room 3023B Mini Bhatti: Can we restart her electrolyte protocol? Her K was low this morning and I have only been able to give her 2 doses of K-Dur. Thank you, Corin ext [phone].
[2019-04-25] MEDS ORDERED: potassium Cl 20 mEq SR tablet PO PRN (17:00)
[2019-04-25] MEDS ORDERED: potassium CL 10mEq/100ml bag 100 ML IV PRN ×2 (17:00)
--- NOTE | 2019-04-25 18:52 | NUR ---
Problems reprioritized. Patient report given, questions answered & plan of care reviewed with Sravani EMANUEL. Patient stable at time of transfer of care.
[2019-04-25] MEDS: famotidine 10mg tablet PO SCH (21:34)
[2019-04-25] MEDS: ARIPIPRAZOLE 10 MG TABLET PO SCH (21:35)
[2019-04-25] MEDS: prazosin 1mg capsule PO SCH (21:35)
[2019-04-25] MEDS: pravastatin 40mg tablet PO SCH (21:35)
[2019-04-25] MEDS: traZODone 50mg tablet PO SCH (21:35)
[2019-04-25] MEDS: heparin 10,000 units/1 ML INJ IV PRN (23:14)
[2019-04-26 03:00] VITALS: BP 127/58
[2019-04-26] MEDS: furosemide 40mg/4ml inj IV SCH ×4 (03:18→22:12)
[2019-04-26] MEDS: methylPREDNISolone sod succ 125mg/2ml vial IV SCH ×4 (03:18→22:12)
[2019-04-26 05:12] LABS: BASOPHILS % (AUTO) 0.1 % (0-1); EOSINOPHILS % (AUTO) 0.1 % (0-6); HEMATOCRIT 36.9 % (35.0-45.0); HEMOGLOBIN 12.8 g/dl (12.0-16.0); LYMPHOCYTES # (AUTO) 0.9 X10'3 (1.1-4.8); LYMPHOCYTES % (AUTO) 12.1 % (21-51); MEAN CORPUSCULAR HEMOGLOBIN 33.4 PG (27.0-31.0); MEAN CORPUSCULAR HGB CONC 34.7 g/dL (33.0-36.5); MEAN CORPUSCULAR VOLUME 96.3 FL (78-98); MEAN PLATELET VOLUME 7.5 FL (7.4-10.4); MONOCYTES # (AUTO) 0.6 X10'3 (0-0.9); NEUTROPHILS % (AUTO) 79.7 % (42-75); PLATELET COUNT 150 X10'3 (140-440); RED BLOOD COUNT 3.83 X10'6 (4.20-5.60); RED CELL DISTRIBUTION WIDTH 14.3 % (11.5-14.5); WHITE BLOOD COUNT 7.5 X10'3 (4.5-11.0)
[2019-04-26 05:17] LABS: ANION GAP 8 (8-16); BLOOD UREA NITROGEN 44 MG/DL (7-18); CALCIUM 8.6 MG/DL (8.5-10.1); CHLORIDE 99 MMOL/L (99-107); CREATININE 0.88 MG/DL (0.40-0.90); GLUCOSE 175 MG/DL (70-104); MAGNESIUM 2.3 MG/DL (1.5-2.4); POTASSIUM 3.2 MMOL/L (3.5-5.1); SODIUM 140 MMOL/L (135-145); TOTAL CARBON DIOXIDE 33.4 MMOL/L (24-32); eGFR 66 ML/MIN
[2019-04-26 06:00] VITALS: BP 126/74
--- NOTE | 2019-04-26 06:00 | NUR ---
Patient in room PCU 3023. I have received report from Sravani EMANUEL and had the opportunity to ask questions and assume patient care.
[2019-04-26] MEDS: K and/or MAG REPLACEMENT MC SCH ×4 (08:00→20:00)
[2019-04-26] MEDS: traMADol 50MG tablet PO PRN (08:02)
[2019-04-26] MEDS: lactobacillus rhamnosus 10,000 MMU CELLS/CAPSULE PO SCH ×2 (08:02→22:01)
[2019-04-26] MEDS: sertraline 50mg tablet PO SCH (08:04)
[2019-04-26] MEDS: potassium Cl 20 mEq SR tablet PO PRN ×2 (08:04→22:10)
[2019-04-26] MEDS: clopidogrel 75mg tablet PO SCH (08:05)
[2019-04-26] MEDS: busPIRone 5mg tablet PO SCH ×2 (08:05→22:07)
[2019-04-26] MEDS: azithromycin 250mg tablet PO SCH (08:05)
[2019-04-26] MEDS: levoTHYROXINE 100mcg tablet PO SCH (08:06)
[2019-04-26] MEDS: CefTRIAXone/D5W-Rocephin 1gm 50 ML IV SCH (08:07)
[2019-04-26] MEDS: oseltamivir phos 75mg capsule PO SCH ×2 (08:21→20:00)
[2019-04-26] MEDS ORDERED: iohexol 350MG/ML 100ml bottle IV ONE (09:14)
[2019-04-26 11:00] VITALS: BP 133/69
--- NOTE | 2019-04-26 11:30 | NUR ---
After holding heparin for cardiac PTT >139, restarted and noticed urine output was blood tinged. Informed Theron PELAYO, who gave orders to DC heparin drip.
--- NOTE | 2019-04-26 11:33 | NUR ---
Paged PICC nurse fpr placement of 20G. Only attempted IV start x1 d/t pt being on Heparin drip.
[2019-04-26 15:00] VITALS: BP 140/64
[2019-04-26 18:00] VITALS: BP 136/71
--- NOTE | 2019-04-26 18:00 | NUR ---
Patient in room PCU 3023. I have received report from My EMANUEL and had the opportunity to ask questions and assume patient care.
--- NOTE | 2019-04-26 19:13 | NUR ---
Problems reprioritized. Patient report given, questions answered & plan of care reviewed with Lacy EMANUEL.
[2019-04-26 22:00] VITALS: BP 124/59
[2019-04-26] MEDS: traZODone 50mg tablet PO SCH (22:02)
[2019-04-26] MEDS: ARIPIPRAZOLE 10 MG TABLET PO SCH (22:02)
[2019-04-26] MEDS: prazosin 1mg capsule PO SCH (22:04)
[2019-04-26] MEDS: famotidine 10mg tablet PO SCH (22:05)
[2019-04-26] MEDS: pravastatin 40mg tablet PO SCH (22:07)
[2019-04-27] MEDS: furosemide 40mg/4ml inj IV SCH ×3 (01:38→13:29)
[2019-04-27 02:00] VITALS: BP 97/82
--- NOTE | 2019-04-27 02:00 | NUR ---
Paged Edwina about pts low HR and inquired if 0200 dose should be held, he ordered next dose of 62.5 mg Solu-medrol Q6H to begin at 0600
[2019-04-27 05:29] LABS: BASOPHILS % (AUTO) 0.1 % (0-1); EOSINOPHILS % (AUTO) 0 % (0-6); HEMATOCRIT 39.1 % (35.0-45.0); HEMOGLOBIN 13.6 g/dl (12.0-16.0); LYMPHOCYTES # (AUTO) 0.9 X10'3 (1.1-4.8); LYMPHOCYTES % (AUTO) 9.2 % (21-51); MEAN CORPUSCULAR HEMOGLOBIN 33.2 PG (27.0-31.0); MEAN CORPUSCULAR HGB CONC 34.7 g/dL (33.0-36.5); MEAN CORPUSCULAR VOLUME 95.6 FL (78-98); MEAN PLATELET VOLUME 7.4 FL (7.4-10.4); MONOCYTES # (AUTO) 0.6 X10'3 (0-0.9); MONOCYTES % (AUTO) 6.4 % (2-12); NEUTROPHILS # (AUTO) 7.8 X10'3 (1.8-7.7); NEUTROPHILS % (AUTO) 84.3 % (42-75); PLATELET COUNT 149 X10'3 (140-440); RED BLOOD COUNT 4.09 X10'6 (4.20-5.60); RED CELL DISTRIBUTION WIDTH 14.2 % (11.5-14.5); WHITE BLOOD COUNT 9.2 X10'3 (4.5-11.0)
[2019-04-27 05:35] LABS: ANION GAP 3 (8-16); BLOOD UREA NITROGEN 37 MG/DL (7-18); BUN/CREATININE RATIO 39.4 (6.6-38.0); CALCIUM 8.6 MG/DL (8.5-10.1); CHLORIDE 98 MMOL/L (99-107); CREATININE 0.94 MG/DL (0.40-0.90); GLUCOSE 176 MG/DL (70-104); MAGNESIUM 2.2 MG/DL (1.5-2.4); POTASSIUM 3.8 MMOL/L (3.5-5.1); SODIUM 138 MMOL/L (135-145); TOTAL CARBON DIOXIDE 37.1 MMOL/L (24-32); eGFR 61 ML/MIN
[2019-04-27] MEDS: methylPREDNISolone sod succ 125mg/2ml vial IV SCH ×3 (05:44→14:00)
[2019-04-27 06:00] VITALS: BP 127/76
--- NOTE | 2019-04-27 06:00 | NUR ---
Problems reprioritized. Patient report given, questions answered & plan of care reviewed with My EMANUEL.
--- NOTE | 2019-04-27 06:00 | NUR ---
Patient in room PCU 3023. I have received report from Lacy EMANUEL and had the opportunity to ask questions and assume patient care.
[2019-04-27] MEDS: K and/or MAG REPLACEMENT MC SCH ×2 (08:00)
[2019-04-27] MEDS: CefTRIAXone/D5W-Rocephin 1gm 50 ML IV SCH (08:00)
[2019-04-27] MEDS: clopidogrel 75mg tablet PO SCH (09:35)
[2019-04-27] MEDS: lactobacillus rhamnosus 10,000 MMU CELLS/CAPSULE PO SCH (09:35)
[2019-04-27] MEDS: azithromycin 250mg tablet PO SCH (09:36)
[2019-04-27] MEDS: levoTHYROXINE 100mcg tablet PO SCH (09:36)
[2019-04-27] MEDS: sertraline 50mg tablet PO SCH (09:36)
[2019-04-27] MEDS: traMADol 50MG tablet PO PRN (09:39)
[2019-04-27] MEDS: busPIRone 5mg tablet PO SCH (09:39)
[2019-04-27 11:00] VITALS: BP 125/67
[2019-04-27] MEDS: LORazepam 2 mg/ml vial IV PRN (11:25)
--- NOTE | 2019-04-27 14:59 | NUR ---
Initial: Pt admitted for SOB r/t CHF and COPD with pt currently on BiPap. Pt has been eating very poorly since admission likely d/t difficulty breathing, with meal refusals for 2 days and avg PO intake of 0-25% with PO intake 75% last night for dinner, not meeting needs. Pt has adequate energy stores to offset a temporary caloric deficit. LBM 04/24, pt may benefit from routine bowel care. Pt d/c to [facility] at 1600 today. Recommendations: 1. continue regular diet 2. bowel care as needed 3. weight per rx Addendum: 04/27/19 at 1459 by Wing Levi UMANZOR Amended: Links added. Addendum: 04/27/19 at [address] RD agree with note
[2019-04-27 15:00] VITALS: BP 129/77
--- NOTE | 2019-04-27 16:00 | NUR ---
Per MD orders patient stable for transfer to [facility]. Called in report to Sherlyn from [facility]. PIV and roy catheter kept in place per case management. Tele monitoring discontinued. All belongings sent with patient. Transferred to ambulance via gurney accompanied by ambulance personnel. Stable at transfer.
== END 2019-04-27 16:32 | DRG 280 ==
LOC: ER 12:32 → ED HOLD 15:21 → PCU 3S 20:40
PROVIDERS: ADMIT Internal Medicine; ATTEND Internal Medicine
PROC: 5A09357 Assistance with Respiratory Ventilation, Less than 24 Consecutive Hours, Continuous Positive Airway Pressure (ICD-10-PCS; principal; 2019-04-23)
PROC: 5A09357 Assistance with Respiratory Ventilation, Less than 24 Consecutive Hours, Continuous Positive Airway Pressure (ICD-10-PCS; 2019-04-25)
PROC: 5A09357 Assistance with Respiratory Ventilation, Less than 24 Consecutive Hours, Continuous Positive Airway Pressure (ICD-10-PCS; 2019-04-26)
PROC: 5A09357 Assistance with Respiratory Ventilation, Less than 24 Consecutive Hours, Continuous Positive Airway Pressure (ICD-10-PCS; 2019-04-27)
DX: I21.4 Non-ST elevation (NSTEMI) myocardial infarction (principal); J96.02 Acute respiratory failure with hypercapnia; J96.01 Acute respiratory failure with hypoxia; J12.9 Viral pneumonia, unspecified; R65.11 Systemic inflammatory response syndrome (SIRS) of non-infectious origin with acute organ dysfunction; J44.1 Chronic obstructive pulmonary disease with (acute) exacerbation; J44.0 Chronic obstructive pulmonary disease with (acute) lower respiratory infection; F15.90 Other stimulant use, unspecified, uncomplicated; E03.9 Hypothyroidism, unspecified; E78.5 Hyperlipidemia, unspecified; F17.210 Nicotine dependence, cigarettes, uncomplicated; F41.9 Anxiety disorder, unspecified; I11.0 Hypertensive heart disease with heart failure; I27.81 Cor pulmonale (chronic); B19.20 Unspecified viral hepatitis C without hepatic coma; F32.9 Major depressive disorder, single episode, unspecified; G89.29 Other chronic pain; M54.5 Low back pain; R00.1 Bradycardia, unspecified; R31.9 Hematuria, unspecified; I50.9 Heart failure, unspecified; N28.9 Disorder of kidney and ureter, unspecified; N95.1 Menopausal and female climacteric states; Z87.01 Personal history of pneumonia (recurrent); Z88.5 Allergy status to narcotic agent; Z90.49 Acquired absence of other specified parts of digestive tract; Z90.710 Acquired absence of both cervix and uterus; Z79.899 Other long term (current) drug therapy
CPT/HCPCS: 36415; 36600; 71045; 71275; 76937; 80048; 80053; 80061; 80305; 82803; 83605; 83735; 83880; 84145; 84443; 84484; 85018; 85025; 85379; 85610; 85730; 87040; 87081; 87502; 87503; 93005; 93306; 93970; 94640; 94660; 94760; 96365; 96375; 96376; 99291; G0378; J0696; J1100; J1644; J1940; J2060; J2930; J3486; J3490; Q9967

== ENCOUNTER 2019-05-04 16:13 | Emergency (ER) | payer MEDICARE, MEDICAID ==
[~2019-05-04] VITALS: Ht 160 cm; Wt 97.3 kg
[~2019-05-04 16:13] MED LIST changes: -ACAM333T8 PO; -AMIT25TA9 PO; -CYCL-1 PO; -ERGO50002 PO; -HYDR50TA65 PO; +LAMO100T PO; -LAMO100T2 PO; +LEVO100T PO; -MELO-102 PO; -ORPH100T2 PO; +PRAV40TA3 PO; +SERT25TA PO; -SIMV-42 PO; -SYN0.088T PO; +calcium chloride 100 MG/1 ML inj IV ONE; +dextrose 50%-water 50ml dispensing syringe IV ONE; +epiNEPHrine 0.1mg/ml 10ml syringe ONE; +etomidate 2mg/ml inj. ONE; +rocuronium 10mg/ml inj IV ONE; +sodium bicarbonate (8.4%) 1 mEq/ml syringe ONE
[2019-05-04 17:12] LABS: HEMATOCRIT 47.2 % (35.0-45.0); HEMOGLOBIN 16.2 g/dl (12.0-16.0); MEAN CORPUSCULAR HEMOGLOBIN 33.5 PG (27.0-31.0); MEAN CORPUSCULAR HGB CONC 34.4 g/dL (33.0-36.5); MEAN CORPUSCULAR VOLUME 97.6 FL (78-98); MEAN PLATELET VOLUME 9.5 FL (7.4-10.4); PLATELET COUNT 59 X10'3 (140-440); RED BLOOD COUNT 4.83 X10'6 (4.20-5.60); RED CELL DISTRIBUTION WIDTH 14.5 % (11.5-14.5)
[2019-05-04] MEDS ORDERED: piperacillin/tazo 3.375gm/50ml 50 ML IV ONE (17:15)
[2019-05-04] MEDS ORDERED: ondansetron/PF 4mg/2ml inj IV ONE (17:20)
[2019-05-04] MEDS ORDERED: fentaNYL/PF 50MCG/1 ML 2ML syringe IV ONE (17:20)
--- NOTE | 2019-05-04 17:29 | NUR ---
Spoke with Dr. Myers regarding patients midline in the right upper arm. Dr. Myers stated that midline was ok to use.
[2019-05-04 17:30] LABS: WHITE BLOOD COUNT 40.4 X10'3 (4.5-11.0)
[2019-05-04 17:31] LABS: ALANINE AMINOTRANSFERASE 387 U/L (12-78); ALBUMIN 2.5 G/DL (3.4-5.0); ALBUMIN/GLOBULIN RATIO 0.7 (1.1-1.5); ALKALINE PHOSPHATASE 249 IU/L (46-116); ANION GAP 12 (8-16); BILIRUBIN,TOTAL 1.7 MG/DL (0.1-1.0); BLOOD UREA NITROGEN 38 MG/DL (7-18); BUN/CREATININE RATIO 23.8 (6.6-38.0); CALCIUM 8.6 MG/DL (8.5-10.1); CHLORIDE 98 MMOL/L (99-107); GLUCOSE 168 MG/DL (70-104); LIPASE 391 U/L (73-393); SODIUM 136 MMOL/L (135-145); TOTAL CARBON DIOXIDE 25.7 MMOL/L (24-32); eGFR 33 ML/MIN
[2019-05-04 17:34] LABS: POTASSIUM 4.5 MMOL/L (3.5-5.1)
[2019-05-04 17:35] LABS: ASPARTATE AMINO TRANSFERASE 1096 U/L (10-37)
[2019-05-04 17:44] LABS: PARTIAL THROMBOPLASTIN TIME 30 SECONDS (22-32)
[2019-05-04 17:57] LABS: MAGNESIUM 2.2 MG/DL (1.5-2.4)
[2019-05-04] MEDS ORDERED: HYDR-3964 PO (18:15)
[2019-05-04] MEDS ORDERED: CLOP75TA33 PO (18:15)
[2019-05-04] MEDS ORDERED: PRAV40TA PO (18:15)
[2019-05-04] MEDS ORDERED: LACT1CAP65 PO (18:15)
[2019-05-04] MEDS ORDERED: NICO1PAT41 TOP (18:15)
[2019-05-04] MEDS ORDERED: LEVO75TA7 PO (18:15)
[2019-05-04] MEDS ORDERED: FURO40TA4 IV (18:15)
[2019-05-04] MEDS ORDERED: PRED10TA23 PO (18:15)
[2019-05-04] MEDS ORDERED: ENOX40SY7 SUBCUT (18:15)
[2019-05-04] MEDS ORDERED: IPRA3AMP31 IH (18:15)
[2019-05-04] MEDS ORDERED: FAMO20TA8 PO (18:15)
--- NOTE | 2019-05-04 18:44 | NUR ---
PT'S HAND WHERE LAB WAS DRAWN WAS BLEEDING WHEN i CAME IN ROOM.HELD PRESSURE FOR 5 MINUTES AND APPLIED PRESSURE DRESSING.
[2019-05-04 19:02] LABS: URINE HCG NEGATIVE (NEG)
[2019-05-04 19:03] LABS: CLARITY,URINE TURBID (Clear); COLOR,URINE RED (Yellow)
[2019-05-04 19:27] LABS: UA COLLECTION TYPE CLN CATCH MIDSTREAM
[2019-05-04] MEDS ORDERED: vancomycin/NS 1 GM ADD-VANTAGE 250 ML IV ONE (19:45)
[2019-05-04] MEDS ORDERED: normal saline 1000ML IV soln IVB ONE (19:45)
[2019-05-04 19:47] LABS: BACTERIA,URINE 3+ /HPF (Neg); MUCUS STRANDS FEW /LPF (Neg); RBC,URINE TNTC /HPF (0-2); SQUAMOUS EPITHELIAL CELL,UR NONE SEEN /LPF (FEW); WBC,URINE 20-30 /HPF (0-4)
[2019-05-04 19:48] LABS: HYALINE CASTS 0-3 /LPF (NEGATIVE)
[2019-05-04 20:46] LABS: NUCLEATED RED BLOOD CELLS 3 /100WBC (0-0); TOTAL CELLS COUNTED 100
[2019-05-04 20:48] LABS: PLATELET ESTIMATE DECREASED
[2019-05-04 20:49] LABS: LARGE PLATELETS FEW
[2019-05-04] MEDS ORDERED: metroNIDAZOLE-Flagyl 500mg/NS 100 ML IV ONE (22:15)
[2019-05-04] MEDS ORDERED: pantoprazole 40 MG vial IV ONE (22:20)
[2019-05-05] MEDS ORDERED: normal saline 1000ml 1,000 ML IV SCH ×2 (00:19→01:00)
[2019-05-05] MEDS ORDERED: magnesium Cl slow-release 64mg tablet PO PRN (00:20)
[2019-05-05] MEDS ORDERED: potassium CL 10mEq/100ml bag 100 ML IV PRN ×2 (00:20)
[2019-05-05] MEDS ORDERED: magnesium 2GM in 50ml NS 50 ML IV PRN (00:20)
[2019-05-05] MEDS ORDERED: potassium Cl 20 mEq SR tablet PO PRN ×2 (00:20)
[2019-05-05] MEDS ORDERED: ondansetron/PF 4mg/2ml inj IV PRN (00:20)
[2019-05-05] MEDS ORDERED: magnesium 4gm in 100ml NS 100 ML IV PRN (00:20)
[2019-05-05 00:22] LABS: RED BLOOD COUNT 5.13 X10'6 (4.20-5.60)
--- NOTE | 2019-05-05 00:30 | NUR ---
PT STATES SHE HAS 10\10 ABDOMINAL PAIN. O2 92% ON NON-REBREATHER AT 15 L. BP 88/71, HR 115. HOSPITALIST NOTIFIED OF PATIENT CONDITION. NEW ORDERS FOR 500 ML FLUID BOLUS, 50 MCG FENTANYL FOR PAIN, AND INSERT A PRATER CATHETER.
[2019-05-05 00:32] LABS: HEMATOCRIT 50.3 % (35.0-45.0); MEAN CORPUSCULAR HEMOGLOBIN 33.1 PG (27.0-31.0); MEAN CORPUSCULAR HGB CONC 33.8 g/dL (33.0-36.5); MEAN CORPUSCULAR VOLUME 98.1 FL (78-98); MEAN PLATELET VOLUME 10.1 FL (7.4-10.4); PLATELET COUNT 69 X10'3 (140-440); RED CELL DISTRIBUTION WIDTH 15.1 % (11.5-14.5)
[2019-05-05] MEDS ORDERED: normal saline 500ml IV soln 500 ML IV ONE (00:35)
[2019-05-05] MEDS ORDERED: fentaNYL/PF 50MCG/1 ML 2ML syringe IV ONE (00:35)
[2019-05-05 00:45] LABS: WHITE BLOOD COUNT 58.3 X10'3 (4.5-11.0)
--- NOTE | 2019-05-05 00:45 | NUR ---
PT STATES SHE IS IN SEVERE PAIN. BLOOD PRESSURE 92\70 UNSAFE TO ADMINISTER FENTANYL. 500 MG FLUID ADMINISTERED.
--- NOTE | 2019-05-05 00:55 | NUR ---
call placed to dr fong with pt increase in severe abdominal pain decrease in blood presuure and her increasing wbc and hgb hct, discussed pt bleeding issues of positive hemoccult, bloody urine bleeding from midline iv site with low platelet count and pt history of receiving lovenox and plavix at [facility] as well as her increasing lactic acid and not having yet received fluids at 30 mg/kg for severe sepsis asked md to please come reevaluate patient, pt blood pressure dropped to 62/42 while talking to md she gave order for 2l ns bolus and instructed me to call artemio page for the nuclear waste management engineer to come evaluate the patient sooner.
--- NOTE | 2019-05-05 01:05 | NUR ---
pt moved from room 12 to room 3 for possible central line placement and potential intubation.
[2019-05-05] MEDS ORDERED: NORepinephrine 8mg/ 250ml NS 250 ML IV SCH (01:15)
[2019-05-05 01:30] LABS: ABG BASE EXCESS -14.9 mmol/L (-2.0-3.0); ABG HCO3 11.8 mmol/L (22.0-26.0); ABG OXYGEN SATURATION 97.7 % (95-98); ABG PCO2 (T) 30.2 mmHg (35.0-45.0); ABG PH (T) 7.207 (7.350-7.450); ABG PO2 (T) 112.2 mmHg (83-108); FCOHb 1.1 % (0.5-1.5); FLOW 15 L/min; FMetHb 0.8 % (0.3-1.12); FO2Hb 95.8 % (94-100); PATIENT TEMPERATURE 36.6; RESPIRATORY RATE (OBSERVED) 30 b/min; TOTAL HEMOGLOBIN 14.7 G/dl (12.0-16.0)
[2019-05-05] MEDS ORDERED: iohexol 350MG/ML 100ml bottle IV ONE (01:45)
--- NOTE | 2019-05-05 01:53 | NUR ---
PT TO BE INTUBATED, DR BENNETT AT BEDSIDE, RT LAUREL AND ALTHEA 0152 alek 70mg and etomadate 20 mg GIVEN 0155 INTUBATED WITH ET TUBE, MAC 3, # 8 TUBE, + BILATERAL ASCULTATION, MARKED 22 AT THE TEETH, + COLOR CHANGE Laura ELLIOTT AT BEDSIDE.
[2019-05-05] MEDS ORDERED: tranexamic acid 1gm/0.7% sal. 100 ML IV ONE (02:05)
[2019-05-05] MEDS ORDERED: NORMAL SALINE IV SCH (02:45)
[2019-05-05] MEDS ORDERED: VASOPRESSIN IV SCH (02:45)
[2019-05-05 03:05] LABS: ABG BASE EXCESS -22.5 mmol/L (-2.0-3.0); ABG HCO3 10.5 mmol/L (22.0-26.0); ABG OXYGEN SATURATION 78.8 % (95-98); ABG PCO2 (T) 51.2 mmHg (35.0-45.0); ABG PH (T) 6.928 (7.350-7.450); ABG PO2 (T) 62.6 mmHg (83-108); FCOHb 1.1 % (0.5-1.5); FMetHb 0.7 % (0.3-1.12); FO2Hb 77.4 % (94-100); MINUTE VOLUME 10 L/min; PATIENT TEMPERATURE 36.6; PEEP 8 cm H2O; RESPIRATORY RATE 22 b/min; RESPIRATORY RATE (OBSERVED) 22 b/min; TIDAL VOLUME 400 mL; TOTAL HEMOGLOBIN 16.7 G/dl (12.0-16.0)
[2019-05-05 04:22] LABS: ALANINE AMINOTRANSFERASE 766 U/L (12-78); ALBUMIN 1.6 G/DL (3.4-5.0); ALBUMIN/GLOBULIN RATIO 0.6 (1.1-1.5); ALKALINE PHOSPHATASE 292 IU/L (46-116); BILIRUBIN,TOTAL 1.7 MG/DL (0.1-1.0); BLOOD UREA NITROGEN 39 MG/DL (7-18); BUN/CREATININE RATIO 15.8 (6.6-38.0); CHLORIDE 107 MMOL/L (99-107); CREATININE 2.47 MG/DL (0.40-0.90); GLUCOSE 82 MG/DL (70-104); TOTAL CARBON DIOXIDE 15.1 MMOL/L (24-32); TOTAL PROTEIN 4.5 G/DL (6.4-8.2); eGFR 20 ML/MIN
[2019-05-05 04:24] LABS: ALANINE AMINOTRANSFERASE 780 U/L (12-78); ALBUMIN 1.6 G/DL (3.4-5.0); ALBUMIN/GLOBULIN RATIO 0.6 (1.1-1.5); ALKALINE PHOSPHATASE 288 IU/L (46-116); BILIRUBIN,TOTAL 1.6 MG/DL (0.1-1.0); TOTAL PROTEIN 4.5 G/DL (6.4-8.2)
[2019-05-05 04:29] VITALS: BP 87/56
[2019-05-05 04:39] LABS: ASPARTATE AMINO TRANSFERASE 1657 U/L (10-37); BILIRUBIN,DIRECT 0.9 MG/DL (0-0.3)
[2019-05-05 04:40] LABS: ANION GAP 20 (8-16); POTASSIUM 5.6 MMOL/L (3.5-5.1); SODIUM 142 MMOL/L (135-145)
[2019-05-05 04:41] LABS: ASPARTATE AMINO TRANSFERASE 1657 U/L (10-37)
[2019-05-05 04:50] LABS: BASOPHILS # (AUTO) 0.1 X10'3 (0-0.2); BASOPHILS % (AUTO) 0.2 % (0-1); EOSINOPHILS # (AUTO) 0.5 X10'3 (0-0.9); HEMOGLOBIN 13.6 g/dl (12.0-16.0)
[2019-05-05 04:53] LABS: EOSINOPHILS % (AUTO) 0.8 % (0-6); HEMATOCRIT 42.1 % (35.0-45.0); LYMPHOCYTES # (AUTO) 2.5 X10'3 (1.1-4.8); LYMPHOCYTES % (AUTO) 4.2 % (21-51); MEAN CORPUSCULAR HEMOGLOBIN 33.1 PG (27.0-31.0); MEAN CORPUSCULAR HGB CONC 32.4 g/dL (33.0-36.5); MEAN CORPUSCULAR VOLUME 102.3 FL (78-98); MEAN PLATELET VOLUME 9.1 FL (7.4-10.4); MONOCYTES # (AUTO) 1.6 X10'3 (0-0.9); MONOCYTES % (AUTO) 2.8 % (2-12); NEUTROPHILS # (AUTO) 53.3 X10'3 (1.8-7.7); PLATELET COUNT 75 X10'3 (140-440); RED BLOOD COUNT 4.11 X10'6 (4.20-5.60); RED CELL DISTRIBUTION WIDTH 16.2 % (11.5-14.5)
[2019-05-05 05:09] LABS: HEMOGLOBIN A1C 5.6 % (4.5-6.2)
--- NOTE | 2019-05-05 05:30 | NUR ---
POST MORTEM, PATIENT'S DEMOGRAPHICS WERE CALLED. NONE OF THE PHONE NUMBERS CONNECTED THE PRIMARY NURSE
--- NOTE | 2019-05-05 06:00 | NUR ---
0455 START CPR, 1 AMP EPI, 1 AMP BI-CARB 0456 1 G CALCIUM 0458 1 EPI 0459 ULTRASOUND, RESUME COMPRESSIONS 0500 DISSCONECT VENT / START BAG VALVE 0501 RESUME COMPRESSION 1 EPI 0502 BICARB 1 AMP 0503 PULSE CHECK 0504 RESUME COMPRESSIONS, 1 EPI, 0506 1 EPI, PULSE CHECK, ULTRASOUND 0507 RESUME COMPRESSIONS 0510 PAUSE COMPRESSIONS, ULTRASOUND, RESUME COMPRESSIONS, [address] BENNETT
--- NOTE | 2019-05-05 06:17 | NUR ---
CORNER RELEASED PATIENT, CHAITANYA CASTORENA WAS CALLED [facility]. THEY STATED THAT THEY WILL INVASIVE MANAGER PATIENT SHORTLY AND CONTACT NEXT OF KIN.
[2019-05-05] MEDS ORDERED: metroNIDAZOLE-Flagyl 500mg/NS 100 ML IV SCH (08:00)
[2019-05-05] MEDS ORDERED: K and/or MAG REPLACEMENT MC SCH (08:00)
--- NOTE | 2019-05-05 08:14 | NUR ---
pt picked up by mortuary.
[2019-05-05 08:38] LABS: D-DIMER > 19.90 MG/L FEU (0-0.50); PLATELET COUNT 91 X10'3 (140-440)
[2019-05-05 08:41] LABS: PARTIAL THROMBOPLASTIN TIME 113 SECONDS (22-32)
[2019-05-14 15:42] LABS: OCCULT BLOOD STOOL POSITIVE (Neg)
== END 2019-05-05 05:25 | disposition expired ==
LOC: ER 16:13 → ED HOLD 21:29 → UNDOADMIN 21:29 → UNDODISIN 05-05 05:25 → ER 05-05 05:25
DX: J18.9 Pneumonia, unspecified organism (principal); A41.9 Sepsis, unspecified organism; N39.0 Urinary tract infection, site not specified; E66.9 Obesity, unspecified; I10 Essential (primary) hypertension; J44.9 Chronic obstructive pulmonary disease, unspecified; G89.29 Other chronic pain; F15.90 Other stimulant use, unspecified, uncomplicated; F17.200 Nicotine dependence, unspecified, uncomplicated; Z90.49 Acquired absence of other specified parts of digestive tract; Z98.890 Other specified postprocedural states; Z90.710 Acquired absence of both cervix and uterus; Z88.5 Allergy status to narcotic agent; Z79.899 Other long term (current) drug therapy
CPT/HCPCS: 31500; 36415; 36556; 36600; 71045; 71275; 74174; 74176; 76700; 80053; 80076; 81001; 81025; 82272; 82803; 82948; 83036; 83605; 83690; 83735; 83880; 84145; 85018; 85025; 85027; 85379; 85384; 85610; 85730; 86885; 86900; 86901; 87040; 87077; 87088; 87186; 92950; 93005; 96365; 96367; 96375; 99285; C9113; J0171; J2405; J2543; J3010; J3370; J3490; J7040; Q9967; 94002; 94760; G0378